=== PATIENT | female | born 1940 | race Hispanic/Latino ===

== ENCOUNTER 2024-08-06 11:39 | Inpatient (IN) | payer OTHER ==
[~2024-08-06] VITALS: Ht 157.5 cm; Wt 71.7 kg
[2024-08-06] VITALS (12 sets, daily range): BP systolic 100–167; BP diastolic 47–96; PULSE 68–74; RESP 16–20; TEMP 98.2–98.9; O2SAT 95
--- NOTE | 2024-08-06 14:51 | HP ---
CATALYST HISTORY AND PHYSICAL Date of Service: Aug 06, 2024 Time of Service: 14:38 HISTORY OF PRESENT ILLNESS: [This is an 83-year-old female who was transferred from [facility] for further cardiac evaluation, she is scheduled for left heart catheterization with [facility]. Apparently she initially was admitted at [facility] after fall from home where she sustained injury to the right hip. Patient then complained of right hip pain swelling and deformity and inability to bear weight to the right lower extremity. She was brought to [facility] and diagnosed with right hip intertrochanteric hip fracture. Patient lives in [place]. She was sent to [facility] for preoperative cardiac evaluation and clearance. Patient has history of coronary artery disease status post stenting in the mid LAD with a 2.5 x 12 see hence Xpedition drug-eluting stent in 2013. Last nuclear stress test was in 2021 with no evidence of ischemia or infarct with ejection fraction of 64%. She was evaluated at [facility] as she was having chest pain with elevated troponins. On admission to [facility] she had elevated troponins that was trended from 490, 456 and 417 with12 lead EKG demonstrates no acute findings. She did have history of angina type symptoms six days prior to admission to [facility]. Where she described chest pain as substernal pain that radiates to the left arm up to the level of the elbow and is relieved by nitroglycerin sublingually. Today patient was evaluated in room 228, she is alert and oriented times three. Patient's son at bedside. We are awaiting for Cardiology for further recommendations. ] REVIEW OF SYSTEMS CONSTITUTIONAL: Denies fevers, chills, or night sweats. No unintentional weight loss reported. NEUROLOGICAL: Denies headache, amaurosis fugax, motor weakness, sensory deficit, vertigo/spinning sensation, gait abnormalities, or tremors. ENT: No hearing loss, otalgia, otorrhea, rhinitis, rhinorrhea, hoarseness, or sore throat. CARDIOVASCULAR: Denies any exertional angina, dyspnea on exertion, orthopnea, paroxysmal nocturnal dyspnea, palpitations, life-threatening arrhythmias, claudication. PULMONARY: Denies any shortness of breath, cough, phlegm/sputum, hemoptysis, pleuritic chest pain. SLEEP: Denies morning headaches, daytime somnolence or napping. Denies di fficulty falling asleep, staying asleep, waking from sleep. Denies knowledge of snoring. GASTROINTESTINAL: Denies any type of dysphagia to either liquids or solids. Denies nausea, vomiting, pyrosis, early satiety, abdominal pain, diarrhea, constipation, or changes in stool consistency or caliber. Denies coffee-ground emesis, hematemesis, hematochezia, or melanotic stools. GENITOURINARY: Denies frequency, urgency, nocturia, hematuria or incontinence (Storage/Irritative symptoms.) Low urinary stream, straining to void, urinary intermittency or hesitancy, splitting of the voiding stream, terminal dribbling. ENDOCRINOLOGIC: Denies polyuria, polydipsia, polyphagia or heat/cold intolerances. HEMATOLOGIC: Denies thrombophilia/previous clots, or coagulopathy/bleeding disorders. ONCOLOGIC: Denies personal history of malignancy. DERMATOLOGIC: Denies rashes or pruritus. PSYCHIATRIC: Denies any suicidal or homicidal ideation. Denies hallucinations. PAST MEDICAL HISTORY: [Diabetes mellitus, hyperlipidemia, hypertension, coronary artery disease ] PAST SURGICAL HISTORY: [ Stent placement in 2013, cholecystectomy, colonoscopy, hysterectomy ] PAST SOCIAL HISTORY: [Patient lives with family, admits to continuing tobacco use and no alcohol or illicit drug use ] FAMILY HISTORY: [Noncontributory ] PHYSICAL EXAM GENERAL APPEARANCE: The patient is awake, alert, and oriented, in no acute cardiopulmonary distress. NEUROLOGICAL: Cranial nerves II-XII grossly intact. Motor is 5/5 in bilateral upper and lower extremities proximal to distal. No sensory deficits. HEENT: Face is symmetric. Pupils are equal and reactive. Extraocular movements are intact. NECK: Supple. No JVD. No thyromegaly. No submental, submandibular, pre- /postauricular, occipital or supraclavicular lymphadenopathy. CHEST: Normal chest expansion. No Telemetry. LUNGS: Absence of any rales, rhonchi or any wheezing. CARDIOVASCULAR: Regular. S1 and S2 normal. No appreciable rubs, murmurs or gallops. ABDOMEN: Soft, nontender, and nondistended. There is no rebound, voluntary guarding, or rigidity. : Deferred. No Reynoso. EXTREMITIES: right hip pain SKIN: No skin breakdown. Vital Sign (Last 24 Hours) 08/06/24 08/06/24 12:40 12:53 Temp 99.0 Pulse 72 Resp 18 B/P (MAP) 142/59 Pulse Ox 95 O2 Delivery Room Air* O2 Flow Rate 0 FiO2 21 LABS: Laboratory: Test 08/06/24 12:57 Range/Units Whole Blood Glucose 133 H 70-110 MG/DL DIAGNOSTICS / RADIOLOGY: [ ] ASSESSMENT: [Right hip intertrochanteric hip fracture, POA NSTEMI, Acute coronary syndrome, POA Diabetes mellitus, type 2, POA Hyperlipidemia Hypertension CKD stage IIIB 2D echo at [facility] on 07/30/2024 showed left ventricular ejection fraction 60 65%, grade diastolic dysfunction Nuclear stress test January 03, 2022 normal stress test for vision indicated ejection fraction 64% ] PLAN: [Admit to PCU Pending left heart catheterization for cardiac clearance Pending fixation of the right hip intertrochanteric fracture We will continue to monitor kidney functions, renally dose medication and avoid nephrotoxic A.c. and HS glucometer and insulin sliding scale Consulted cardiology and orthopedic surgeon Please continue inpatient medications from [facility] Continue with GI and DVT prophylaxis We will repeat labs tomorrow We will repeat labs today Patient is a full code Case discussed with Dr. Pfeiffer, above plan was formulated ADVANCED CARE PLANNING 1. Which of the following were discussed? Hospice Care - Yes / No Therapeutic options - Yes / No Advance Directives - Yes / No Other discussions - 2. Discussed with who? Patient/son 3. Voluntary nature of this service was explained to the patient? Yes / No 4. Amount of time spent - _20 mins 5. Reviewed by Physician? (if this service was performed by NPP) Yes / No ] ATTESTATION BY PHYSICIAN I have seen and examined the patient. I reviewed the documentation, medical decision making, and treatment plan as noted by the mid-level provider above. I agree with the findings and plan of care. CAROLINA PFEIFFER MD, [facility] Aug 06, 2024 14:51
[2024-08-06] MEDS ORDERED: GLUCAGON 1MG KIT 1 MG ML IM PRN (15:00)
[2024-08-06] MEDS ORDERED: PoTASSium chloRIDE 20MEQ/100ML 100 ML IV PRN (15:00)
[2024-08-06] MEDS ORDERED: acetaMINOPHEN 325 MG TAB PO PRN (15:00)
[2024-08-06] MEDS ORDERED: DEXTROSE 50%-WATER 50 ML DISP.SYRIN IV PRN (15:00)
[2024-08-06 15:11] LABS: HEMATOCRIT 27.7 % (36-48); MEAN CORPUSCULAR HEMOGLOBIN 30.7 pg (27.0-33.0); MEAN CORPUSCULAR VOLUME 98.9 fL (79-99); PLATELET COUNT (AUTO) 200 K/uL (130-400); RED CELL DISTRIBUTION WIDTH 13.2 % (11.0-15.5); WHITE BLOOD COUNT (AUTO) 12.3 K/uL (4.8-10.8)
[2024-08-06] MEDS: morPHINE 2 MG SYG IVP ONE (15:22)
[2024-08-06 15:33] LABS: ALBUMIN 2.7 g/dL (3.5-5.0); BILIRUBIN,TOTAL 0.5 mg/dL (0.2-1.0); CREATININE 1.2 mg/dL (0.5-1.0); POTASSIUM 4.1 mmol/L (3.5-5.1); TOTAL PROTEIN, SERUM 6.6 g/dL (6.0-8.3)
[2024-08-06] MEDS ORDERED: VERAPAMIL HCL 2.5 MG/ML VIAL ONE (15:33)
[2024-08-06] MEDS ORDERED: LIDOCAINE HCL 400MG/20ML VIAL ONE (15:33)
[2024-08-06] MEDS ORDERED: IOHEXOL 350 MG/ML 100ML INFUS..BTL IV ONE (15:33)
[2024-08-06] MEDS ORDERED: HEParin-NS 1,000 UNIT/500 ML 1,000 ML IV ONE (15:33)
[2024-08-06] MEDS ORDERED: NITROGLYCERIN 50MG VIAL ONE (15:34)
[2024-08-06] MEDS ORDERED: HEParin 10,000 UNIT/10ML (1,000 UNIT/ML) VIAL ONE (15:35)
[2024-08-06] MEDS ORDERED: FENTanyl CITRate PF 50 MCG/1 ML 2ML VIAL ONE (16:06)
[2024-08-06] MEDS ORDERED: MIDAZOLAM HCL 1 MG/ML 2ML VIAL ONE (16:06)
[2024-08-06] MEDS: INSULIN humuLIN R 100 UNIT/ML 3ML SQ SCH (16:30)
[2024-08-06] MEDS ORDERED: HEParin-NS 1,000 UNIT/500 ML 500 ML IV ONE (17:28)
[2024-08-06] MEDS ORDERED: EPTIFIBATIDE 2 MG/ML 10 ML VIAL IVP ONE ×2 (17:42→17:46)
[2024-08-06] MEDS ORDERED: cloPIDOgrel 300MG TAB ONE (17:55)
[2024-08-06] MEDS ORDERED: ASPIRIN 325MG EC TAB PO ONE (17:55)
[2024-08-06] MEDS: 0.9%NACL 1000ML 1,000 ML IV SCH (18:00)
--- NOTE | 2024-08-06 18:20 | PRN ---
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 The right radial artery was interrogated with ultrasound and found to be too small for arterial access. The left groin was interrogated using ultrasound, and under fluoroscopic and ultrasound guidance, the left common femoral artery was accessed with micropuncture and upsized to six Belgian short sheath. Over an 035 J-wire, a six Belgian JR4 catheter was advanced to the ascending aorta, used across aortic valve for LVEDP measurement and pullback across the aortic valve. The JR4 catheter was used to selectively engage right coronary artery multiple angiographic views were taken. Catheter was then exchanged for a six Belgian JL 4.0 which was used to selectively engage left franc nary artery multiple angiographic views were taken. Then, we proceeded with intervention. 70 units per kg of heparin was given via peripheral IV and ACT monitored throughout procedure to obtain goal ACT of greater than 250. The catheter was exchanged for a JL 4.06 Belgian guide, and an 014 x 300 cm run- through wire was advanced to the distal LAD, with positioning confirmed by venancio ective injection through a 2.5 x 12 mm compliant balloon. Pre dilatation was performed of the stenosis with this 2.5 x 12 mm compliant balloon to nominal pressures. Intravascular ultrasound was then performed of the left anterior descending artery which revealed an undersized stent in the left anterior descending measuring 3.0 mm in diameter. We are unable to advance the stent, therefore exchanged over the balloon initially for an 014 Ironman wire, however distal positioning in the left anterior descending artery could not be obtained. The balloon was removed, and 1.8 Belgian FineCross catheter advanced distally and the wire then exchanged again for the runthrough. A six Belgian GuideLiner was used for additional support, and was successful in advancing the jose francisco Fajardo 3.0 x 12 drug-eluting stent in overlapping fashion with the proximal portion prior placed stent. This was deployed at nominal pressures followed by post dilation of the overlap at 12 atmospheres, followed a 2nd inflation to the newly placed stent at 12 atmospheres. The patient tolerated the procedure well without immediate complications. The 2nd diagonal displayed ostial 60-70% stenosis post deployment of the newly placed stent, with ostium jailed. Double bolus Integrilin was given as this time. Patient was chest pain free. Common angiography was performed through the sheath side port and hemostasis achieved w ith six Belgian Perclose. Patient tolerated the procedure well without immediate complications. FINDINGS: Left main: Distal 30% stenosis Left anterior descending: There is a prior placed stent in the mid LAD. There is a focal 95-99% stenosis just proximal to the stent. There was minimal antegrade flow, and 100% occlusion of the distal edge of the stent likely due to poor antegrade coronary flow. There was no collateral filling to the left anterior descending artery retrograde. Following intervention, there is evidence of a residual 100% apical stenosis. First diagonal with an ostial 50% stenosis. The 2nd diagonal is small, displaying moderate diffuse disease, with evidence of 60-70% ostial stenosis status post intervention with a its ostium jailed by the newly placed stent. Left circumflex: Proximal 10-20% stenosis. There are large caliber OM1, OM2 b ranches that are tortuous distally, bifurcating, angiographically free of disease as 610 across the lateral wall Right coronary artery: Coronary display a right dominant system. Proximal RCA 30% stenosis. RPDA with luminal irregularities. HEMODYNAMICS: Opening aortic pressure 153/51 with a mean of 97 mm of mercury Left ventricle 150 mm of mercury. Gradient on pullback across the aortic valve less than 10 mm of mercury. LVEDP 19 mm of mercury CONTRAST: 155 ml SUMMARY: 95 to 99% stenosis of the mid LAD proximal to the prior placed stent, status post percutaneous intervention to the mid left anterior descending artery with placement of drug-eluting stent (3.0 x 12 mm Jose Francisco Fajardo) under intravascular ultrasound guidance. KATHARINE VAUGHN DO Aug 06, 2024 18:19
[2024-08-06] MEDS ORDERED: ATOR40TA71 PO (19:33)
[2024-08-06] MEDS ORDERED: LISI10TA24 PO (19:33)
[2024-08-06] MEDS ORDERED: GABA-529 PO (19:33)
[2024-08-06] MEDS ORDERED: ISOS60TA77 PO (19:33)
[2024-08-06] MEDS ORDERED: MONT-39 PO (19:33)
[2024-08-06] MEDS ORDERED: METO-391 PO (19:33)
[2024-08-06] MEDS ORDERED: OMEP20CA12 PO (19:33)
[2024-08-06] MEDS ORDERED: LORA10TA7 PO (19:33)
[2024-08-06] MEDS: acetaMINOPHEN 325 MG TAB PO PRN (23:55)
[2024-08-07] VITALS (10 sets, daily range): BP systolic 100–131; BP diastolic 45–56; PULSE 64–74; RESP 16–22; TEMP 97.6–98.9; O2SAT 95
[2024-08-07 06:25] LABS: BASOPHILS # (AUTO) 0.03 K/uL (0.00-0.20); BASOPHILS % (AUTO) 0.3 % (0.0-5.0); EOSINOPHILS # (AUTO) 0.27 K/uL (0.00-0.70); EOSINOPHILS % (AUTO) 2.3 % (0.0-8.0); HEMATOCRIT 25.7 % (36-48); IMMATURE GRANULOCYTE ABSOLUTE 0.05 K/uL (0-1); LYMPHOCYTES # (AUTO) 3.1 K/uL (1.0-4.8); LYMPHOCYTES % (AUTO) 27.1 % (21.0-51.0); MEAN CORPUSCULAR HEMOGLOBIN 30.2 pg (27.0-33.0); MEAN CORPUSCULAR HGB CONC 31.1 g/dL (32.0-36.0); MONOCYTES # (AUTO) 0.9 K/uL (0.1-1.0); MONOCYTES % (AUTO) 7.9 % (3.0-13.0); NEUTROPHILS # (AUTO) 7.2 K/uL (1.8-7.7); PLATELET COUNT (AUTO) 209 K/uL (130-400); RED BLOOD CELL COUNT(AUTO) 2.65 MIL/uL (4.00-5.50); RED CELL DISTRIBUTION WIDTH 13.2 % (11.0-15.5); WHITE BLOOD COUNT (AUTO) 11.6 K/uL (4.8-10.8)
[2024-08-07 06:42] LABS: CREATININE 1.1 mg/dL (0.5-1.0); MAGNESIUM 1.5 mg/dL (1.80-2.40); POTASSIUM 3.8 mmol/L (3.5-5.1)
[2024-08-07] MEDS: MAGNESIUM 2GM PREMIX 50ML 50 ML IV PRN (06:51)
[2024-08-07] MEDS: morPHINE 2 MG SYG IVP PRN (07:52)
[2024-08-07] MEDS: metOPROLol sucCINATE 25 MG TAB.SR.24H PO SCH (08:40)
[2024-08-07] MEDS: ASPIRIN 81 MG EC TAB PO SCH (08:42)
[2024-08-07] MEDS: cloPIDOgrel 75MG TAB PO SCH (08:42)
--- NOTE | 2024-08-07 09:11 | PN ---
[facility] CARDIOLOGY PROGRESS NOTE Date Patient Seen: Aug 07, 2024 Time of Visit: 08:29 Interval History: This 83-year-old Latin-British female, patient previously of the [facility] with a history of type 2 diabetes mellitus with circulatory and renal manifestations, hypertension, hyperlipidemia, tobacco abuse (ongoing, but only of a couple of cigarettes per day), peripheral arterial disease with stenoses in the right posterior tibial, left anterior tibial, and left dorsalis pedis arteries by prior Doppler exam, and known coronary artery disease status post remote PTCA and stenting of the mid LAD 07/30/2014 with a 2.5 x 12 mm Xience Xpedition drug-eluting stent. She had a brief admission to [facility] when she developed an episode of dizziness and possible left facial droop 07/27/[address] scan demonstrating atrophy, carotid Dopplers demonstrating no carotid disease, and a 2D echo demonstrating preserved LV function with an LVEF of 60-65%, mild concentric LVH, grade 2 diastolic dysfunction, and no significant valvular disease. She had an accidental fall 08/04/2024 and suffered a right hip intertrochanteric fracture initially hospitalized at [facility]. Serial troponins were screened and were modestly elevated at 490, 456, and 417 without acute ischemic EKG changes. She was transferred for cardiac catheterization 08/06/2024 demonstrating nonobstructive disease in the RCA and left circumflex with a 95-99% mid LAD stenosis several mm proximal to her previous stent in the mid LAD from 2013. She underwent PTCA and stenting with a 3.0 x 12 mm Medtronic jose francisco Jarratt drug-eluting stent without complication with episcopalian of flow to the distal LAD. There was a residual 100% apical LAD stenosis in a small apical LAD. This morning the patient is comfortable, offers no complaints of chest discomfort, and has no groin hematoma in the left groin cath site. Her case has been discussed with Dr. Vaughn, Dr. Augustin Garcia (orthopedic surgery), and plans are for proceeding with surgery to her right hip tomorrow a.m. with modest increased risk given her recent drug-eluting stent. It was felt that delaying her surgery for several weeks would increase her risk of immobilization and for this reason proceeding with surgery at this time is preferable. Continue dual antiplatelet therapy, consider Lovenox/heparin postoperative day one, and monitor for any perioperative cardiac complications. Repeat a 2D echo today as her previous echo was prior to her non STEMI from 08/04/2024. Physical Examination: GENERAL: No acute distress. HEAD: Normal with no signs of head trauma. EYES: PERRLA, EOMI, conjunctiva and sclera normal. NECK: Supple without JVD. There is no tenderness, lymphadenopathy, or masses. No thyromegaly. Normal carotid upstrokes without bruits. LUNGS: Clear breath sounds bilaterally. No wheezes, or rhonchi. HEART: Normal rate and rhythm. Normal S1 and S2 without murmurs, gallop or rub. VASC: Peripheral pulses +2 bilaterally. EXT: No clubbing, cyanosis or edema. The left groin cath site is without bleeding or hematoma. NEURO: Awake, alert, and oriented x3. No focal neurological deficits noted. Laboratory: Hematology Labs: Test 08/07/24 06:03 08/06/24 15:02 Range/Units White Blood Count 11.6 H 4.8-10.8 K/uL Red Blood Count 2.65 L 4.00-5.50 MIL/uL Hemoglobin 8.0 L 12.0-16.0 g/dL Hematocrit 25.7 L 36-48 % Mean Corpuscular Volume 97.0 79-99 fL Mean Corpuscular Hemoglobin 30.2 27.0-33.0 pg Mean Corpuscular Hemoglobin Concent 31.1 L 32.0-36.0 g/dL Red Cell Distribution Width 13.2 11.0-15.5 % Platelet Count 209 130-400 K/uL Mean Platelet Volume 10.7 H 7.5-10.5 fL Immature Granulocyte % (Auto) 0.4 0-1 % Neutrophils (%) (Auto) 62.0 40.0-77.0 % Lymphocytes (%) (Auto) 27.1 21.0-51.0 % Monocytes (%) (Auto) 7.9 3.0-13.0 % Eosinophils (%) (Auto) 2.3 0.0-8.0 % Basophils (%) (Auto) 0.3 0.0-5.0 % Neutrophils # (Auto) 7.2 1.8-7.7 K/uL Lymphocytes # (Auto) 3.1 1.0-4.8 K/uL Monocytes # (Auto) 0.9 0.1-1.0 K/uL Eosinophils # (Auto) 0.27 0.00-0.70 K/uL Basophils # (Auto) 0.03 0.00-0.20 K/uL Absolute Immature Granulocyte (auto 0.05 0-1 K/uL Nucleated Red Blood Cells 0.0 0.0-0.19 % Red Blood Cell Morphology See comments Chemistry Labs: Test 08/07/24 06:03 08/07/24 05:31 08/06/24 15:02 Range/Units Sodium Level 143 136-145 mmol/L Potassium Level 3.8 3.5-5.1 mmol/L Chloride Level 107 101-111 mmol/L Carbon Dioxide Level 30 21-32 mmol/L Blood Urea Nitrogen 20 H 7-18 mg/dL Creatinine 1.1 H 0.5-1.0 mg/dL Glomerular Filtration Rate Calc 50 >90 mL/min Random Glucose 106 H 70-105 mg/dL Total Calcium 8.5 8.5-10.1 mg/dL Magnesium Level 1.50 L 1.80-2.40 mg/dL Whole Blood Glucose 97 70-110 MG/DL Total Bilirubin 0.5 0.2-1.0 mg/dL Aspartate Amino Transf (AST/SGOT) 15 10-37 U/L Alanine Aminotransferase (ALT/SGPT) 18 12-78 U/L Alkaline Phosphatase 62 50-136 U/L Total Protein 6.6 6.0-8.3 g/dL Albumin 2.7 L 3.5-5.0 g/dL Diagnostics / Radiology: Impression and Plan: Right hip intertrochanteric fracture status post accidental fall 08/04/2024: -management discussed with Dr. Augustin Garcia and surgery planned for 08/08/2024 Type 2 non STEMI (supply demand mismatch) in the setting of right hip fracture status post accidental fall 08/04/2024: Modest serial troponins of 490, 456, and 417 with no acute EKG changes: Coronary artery disease status post remote PTCA and stenting of the mid LAD with a 2.5 x 12 Xience Xpedition drug-eluting stent 07/30/2014: Coronary artery disease status post PTCA and stenting of the mid LAD proximal to her prior stent with a 3.0 x 12 mm Medtronic Speculator Jarratt drug-eluting stent 08/06/2024: -patient has been loaded with aspirin and clopidogrel -the patient is cleared for orthopedic surgery at this time with intermediate risk given recent acute coronary syndrome and PTCA and stent procedure, but best to intervene at this time to reduce risk of immobility pending endothelialization of her stent -case discussed with Dr. Augustin Garcia, in surgery planned for tomorrow -continue dual antiplatelets today, proceed with surgery, and plan postoperative heparin/Lovenox beginning postoperative day one Normal LV systolic function with LVEF of 60-65%, mild concentric LVH, grade 2 diastolic dysfunction by 2D echocardiogram 07/29/2024: -limited 2D echo post FL ordered today No hemodynamically significant carotid stenosis by Doppler examination 07/27/2024: Small-vessel disease and mild cerebral atrophy on CT scan of the head 07/26/2024: -monitor [employer] status Normochromic normocytic anemia: -proceed with anemia evaluation Comorbidities: Essential hypertension Hyperlipidemia Continued tobacco abuse Stage III chronic renal insufficiency Type 2 diabetes with renal and circulatory manifestations Diabetic peripheral neuropathy KEYANA MAR MD Aug 07, 2024 09:11
[2024-08-07 09:42] LABS: % IRON SATURATION 13.4 % (22-44)
--- NOTE | 2024-08-07 09:57 | EKG ---
[facility] Test Date: 2024-08-07 Test Time: 09:58:32 Pat Name: AMARIS LOPEZ Department: [facility] Room: 228 1 Gender: Female Saddle Stitcher: [id number] : 1940 Requested By: KEYANA MAR Order Number: [id number] Reading MD: Sam Taylor Measurements Intervals [place] Rate: 80 P: 85 MS: 142 QRS: 39 QRSD: 78 T: 62 QT: 408 QTc: 470 Interpretive Statements Sinus rhythm with premature atrial complexes Cannot rule out Inferior infarct , age undetermined T wave abnormality, consider anterior ischemia No previous ECG available for comparison Electronically Signed On 08-08-2024 16:11:10 CDT by Sam Taylor Please click the below link to view image of tracing.
--- NOTE | 2024-08-07 13:19 | PN ---
[facility] PROGRESS NOTE Date of Service: Aug 07, 2024 Time of Service: 13:16 SUBJECTIVE: The patient has been seen and examined during my rounding, no acute events overnight, remains comfortably in bed, stable, BP 100/45, afebrile, heart rate controlled at 64, saturating 98% on 2 L via nasal cannula. Currently getting good pain control with current medical management, denies dizziness, no headache, no chest pain, no shortness shortness for breath, no nausea, no vomiting, no abdominal discomfort, no diarrhea, no constipation, no melena, no hematochezia, no hematemesis, no hematuria, no dysuria. Patient had left heart catheterization yesterday, tolerated well. 95 to 99% stenosis of the mid LAD proximal to the prior placed stent, status post percutaneous intervention to the mid left anterior descending artery with placement of drug-eluting stent (3.0 x 12 mm Oziel Temple) under intravascular ultrasound guidance. REVIEW OF SYSTEMS CONSTITUTIONAL: Denies fevers, chills, or night sweats. No unintentional weight loss reported. NEUROLOGICAL: Denies headache, amaurosis fugax, motor weakness, sensory deficit, vertigo/spinning sensation, gait abnormalities, or tremors. ENT: No hearing loss, otalgia, otorrhea, rhinitis, rhinorrhea, hoarseness, or sore throat. CARDIOVASCULAR: Denies any exertional angina, dyspnea on exertion, orthopnea, paroxysmal nocturnal dyspnea, palpitations, life-threatening arrhythmias, claudication. PULMONARY: Denies any shortness of breath, cough, phlegm/sputum, hemoptysis, pleuritic chest pain. SLEEP: Denies morning headaches, daytime somnolence or napping. Denies difficulty falling asleep, staying asleep, waking from sleep. Denies knowledge of snoring. GASTROINTESTINAL: Denies any type of dysphagia to either liquids or solids. Denies nausea, vomiting, pyrosis, early satiety, abdominal pain, diarrhea, constipation, or changes in stool consistency or caliber. Denies coffee-ground emesis, hematemesis, hematochezia, or melanotic stools. GENITOURINARY: Denies frequency, urgency, nocturia, hematuria or incontinence (Storage/Irritative symptoms.) Low urinary stream, straining to void, urinary intermittency or hesitancy, splitting of the voiding stream, terminal dribbling. ENDOCRINOLOGIC: Denies polyuria, polydipsia, polyphagia or heat/cold intolerances. HEMATOLOGIC: Denies thrombophilia/previous clots, or coagulopathy/bleeding disorders. ONCOLOGIC: Denies personal history of malignancy. DERMATOLOGIC: Denies rashes or pruritus. PSYCHIATRIC: Denies any suicidal or homicidal ideation. Denies hallucinations. PHYSICAL EXAM GENERAL APPEARANCE: The patient is awake, alert, and oriented, in no acute cardiopulmonary distress. NEUROLOGICAL: Cranial nerves II-XII grossly intact. Motor is 5/5 in bilateral upper and lower extremities proximal to distal. No sensory deficits. HEENT: Face is symmetric. Pupils are equal and reactive. Extraocular movements are intact. NECK: Supple. No JVD. No thyromegaly. No submental, submandibular, pre-/postau ricular, occipital or supraclavicular lymphadenopathy. CHEST: Normal chest expansion. No Telemetry. LUNGS: Absence of any rales, rhonchi or any wheezing. CARDIOVASCULAR: Regular. S1 and S2 normal. No appreciable rubs, murmurs or gallops. ABDOMEN: Soft, nontender, and nondistended. There is no rebound, voluntary guarding, or rigidity. : Deferred. No Reynoso. EXTREMITIES: right hip pain SKIN: No skin breakdown. Vital Signs (last 8hr) Date Time Temp Pulse Resp B/P (MAP) Pulse Ox O2 Delivery O2 Flow Rate FiO2 08/07/24 11:00 98.8 64 22 100/45 98 Nasal Cannula 2.0 08/07/24 08:00 95 Room Air* 0 21 08/07/24 07:00 98.1 72 20 118/46 99 Nasal Cannula 2.0 LABS: Laboratory: Test 08/07/24 11:40 08/07/24 06:10 08/07/24 06:03 08/06/24 15:02 Range/Units Whole Blood Glucose 187 #H 70-110 MG/DL Bedside Glucose Comment Notified Nurse Iron Level 35 L 50-170 mcg/dL Total Iron Binding Capacity 260 250-450 mcg/dL Percent Iron Saturation 13.4 L 22-44 % White Blood Count 11.6 H 4.8-10.8 K/uL Red Blood Count 2.65 L 4.00-5.50 MIL/uL Hemoglobin 8.0 L 12.0-16.0 g/dL Hematocrit 25.7 L 36-48 % Mean Corpuscular Volume 97.0 79-99 fL Mean Corpuscular Hemoglobin 30.2 27.0-33.0 pg Mean Corpuscular Hemoglobin Concent 31.1 L 32.0-36.0 g/dL Red Cell Distribution Width 13.2 11.0-15.5 % Platelet Count 209 130-400 K/uL Mean Platelet Volume 10.7 H 7.5-10.5 fL Immature Granulocyte % (Auto) 0.4 0-1 % Neutrophils (%) (Auto) 62.0 40.0-77.0 % Lymphocytes (%) (Auto) 27.1 21.0-51.0 % Monocytes (%) (Auto) 7.9 3.0-13.0 % Eosinophils (%) (Auto) 2.3 0.0-8.0 % Basophils (%) (Auto) 0.3 0.0-5.0 % Neutrophils # (Auto) 7.2 1.8-7.7 K/uL Lymphocytes # (Auto) 3.1 1.0-4.8 K/uL Monocytes # (Auto) 0.9 0.1-1.0 K/uL Eosinophils # (Auto) 0.27 0.00-0.70 K/uL Basophils # (Auto) 0.03 0.00-0.20 K/uL Absolute Immature Granulocyte (auto 0.05 0-1 K/uL Nucleated Red Blood Cells 0.0 0.0-0.19 % Sodium Level 143 136-145 mmol/L Potassium Level 3.8 3.5-5.1 mmol/L Chloride Level 107 101-111 mmol/L Carbon Dioxide Level 30 21-32 mmol/L Blood Urea Nitrogen 20 H 7-18 mg/dL Creatinine 1.1 H 0.5-1.0 mg/dL Glomerular Filtration Rate Calc 50 >90 mL/min Random Glucose 106 H 70-105 mg/dL Total Calcium 8.5 8.5-10.1 mg/dL Magnesium Level 1.50 L 1.80-2.40 mg/dL Ferritin 113 15-150 ng/mL Vitamin B12 Level 633 193-986 pg/mL Folic Acid (LAB) 19.20 2-20 ng/mL Red Blood Cell Morphology See comments Total Bilirubin 0.5 0.2-1.0 mg/dL Aspartate Amino Transf (AST/SGOT) 15 10-37 U/L Alanine Aminotransferase (ALT/SGPT) 18 12-78 U/L Alkaline Phosphatase 62 50-136 U/L Total Protein 6.6 6.0-8.3 g/dL Albumin 2.7 L 3.5-5.0 g/dL Current Medications Medications (Trade) Dose Ordered Sig/Kaylan Route PRN Reason Start Time Stop Time Status Last Admin Dose Admin Acetaminophen (TYLenol 325MG TAB) 650 mg Q4H PRN PO TEMPERATURE GREATER THAN 101.5 08/06/24 15:00 09/05/24 14:59 Acetaminophen (TYLenol 325MG TAB) 650 mg Q6H PRN PO MILD PAIN (1-3) 08/06/24 15:00 09/05/24 14:59 08/07/24 11:46 650 MG Aspirin (Aspirin 81mg Ec Tab) 81 mg DAILY PO 08/07/24 09:00 09/06/24 08:59 08/07/24 08:42 81 MG Clopidogrel Bisulfate (plaVIX 75MG) 75 mg DAILY PO 08/07/24 09:00 09/06/24 08:59 08/07/24 08:42 75 MG Dextrose (D50w) 50 ml AD PRN IV HYPOGLYCEMIA PROTOCOL 08/06/24 15:00 09/05/24 14:59 Glucagon (Glucagon 1mg Kit) 1 mg AD PRN IM HYPOGLYCEMIA PROTOCOL 08/06/24 15:00 09/05/24 14:59 Insulin Human Regular (humuLIN R 100 UNIT/ML 3ML) INSULIN SLIDING SCAL... ACHS SQ 08/06/24 16:30 09/05/24 16:29 08/07/24 11:50 2 UNIT Magnesium Sulfate 50 ml @ 0 mls/hr PROTOCOL PRN IV MAGNESIUM PROTOCOL 08/06/24 15:00 09/05/24 14:59 08/07/24 06:51 25 MLS/HR Metoprolol Succinate (TopROL XL) 12.5 mg ONCE PO 08/07/24 09:00 08/07/24 14:00 08/07/24 08:40 12.5 MG Morphine Sulfate (morPHINE 2MG SYG) 2 mg Q4H PRN IVP SEVERE PAIN (7-10) 08/06/24 15:00 08/13/24 14:59 08/07/24 12:35 2 MG Ondansetron HCl (zoFRAN 4MG INJ) 4 mg Q6H PRN IVP NAUSEA/VOMITING 08/06/24 15:00 09/05/24 14:59 Potassium Chloride 100 ml @ 50 mls/hr AD PRN IV POTASSIUM PROTOCOL 08/06/24 15:00 09/05/24 14:59 Sodium Chloride 1,000 ml @ 100 mls/hr Q10H IV 08/06/24 18:00 08/06/24 20:59 DC DIAGNOSTICS / RADIOLOGY: [ ] ASSESSMENT: [Right hip intertrochanteric hip fracture, POA NSTEMI, Acute coronary syndrome, POA Diabetes mellitus, type 2, POA Hyperlipidemia Hypertension CKD stage IIIB 2D echo at [place] on 07/30/2024 showed left ventricular ejection fraction 60 65%, grade diastolic dysfunction Nuclear stress test January 03, 2022 normal stress test for vision indicated ejection fraction 64% ] PLAN: Remains admitted to the PCU Left heart catheterization done 08/06/2024 Follow Cardiology input and recommendation Continue to follow orthopedic input and recommendation We will continue to monitor kidney functions, renally dose medication and avoid nephrotoxic A.c. and HS glucometer and insulin sliding scale Consulted cardiology and orthopedic surgeon Please continue inpatient medications from [place] Continue with GI and DVT prophylaxis We will repeat labs tomorrow We will repeat labs today Disposition: Remains admitted to the PCU, continue lens edger, the patient underwent left heart catheterization 08/06/2024 with 95 to 99% stenosis of the mid LAD proximal to the prior placed stent, status post percutaneous intervention to the mid left anterior descending artery with placement of drug-e luting stent (3.0 x 12 mm [place] Temple) under intravascular ultrasound guidance. Continue to follow Cardiology input and recommendation. Follow orthopedic input and recommendation, the patient will be scheduled possibly to be taken to the OR tomorrow. Plan of action discussed with the patient and family at bedside, agreed and understood all the information provided. Total visit time spent greater than 30 minutes. CAROLINA PFEIFFER MD Aug 07, 2024 13:19
--- NOTE | 2024-08-07 18:21 | HMCSR ---
APPROVED REPORT EXAM: Two-dimensional and M-mode echocardiogram with Doppler and color Doppler. Study Details: Hx; CO since recent echo 07/29 (CO on 08/04/2024) assess LV function only INDICATION ICD: s/p NSTEMI 08/04/2024, assess LV function Assess LV Function 2D Dimensions LVED Vol(simp.)89.7 mL LVES Vol(simp.)29.1 mL LVEF(%, simp.)68 % Deformation Strain Apical 417.0 % Apical 221.0 % Apical 320.0 % Global Hnjfff42.0 % Mitral Valve MV E Ibim466.0 cm/sDECEL Fgyb444 ms MV A Hdjl836.9 cm/sP 1/2 T98 ms E/A ratio1.1MVA (PHT)2.2 cm2 TDI E/E' Okvdtp21.7E/E' Pkyjere09.2 Medial E' Peak V6.00 cm/sLateral E' Peak V7.90 cm/s Left Ventricle Left ventricular cavity size is normal. GLS -19.0%. There is normal left ventricular wall thickness. LVEF is 60-65%. Stage I diastolic dysfunction. Atria LAE. Aortic Valve There is no aortic valvular stenosis. Mitral Valve There is trace of mitral valve regurgitation noted. There is no mitral valve stenosis. Pericardium No pericardial effusion. Other Information Quality : ExcellentTechnically difficult due to body habitus Conclusion Limited study. Left ventricular cavity size is normal. LVEF is 60-65%. Stage I diastolic dysfunction. LAE. No pericardial effusion.
--- NOTE | 2024-08-07 22:46 | CONS ---
CONSULTING PHYSICIAN: Tufting Machine Operator. REASON FOR CONSULTATION: Right hip intertrochanteric hip fracture. HISTORY OF PRESENT ILLNESS: This patient lives in [place] and fell down and sustained injury to the right hip. The patient was initially taken to [facility] and diagnosed with a right hip intertrochanteric hip fracture. The patient was planned for surgery at [facility]; however, the patient was recommended cardiology clearance because of her previous history of medical, cardiac problems and the patient was found to have symptoms from the heart and therefore cardiology peng, the patient was transferred to [facility] and underwent cardiac intervention, I think I believe a stenting, so Ortho has been again consulted for the right hip intertrochanteric hip fracture. PAST MEDICAL HISTORY: Positive for diabetes, hypertension, N-STEMI, congestive heart failure. PAST SURGICAL HISTORY: Left elbow ORIF. ALLERGIES: TO PENICILLIN. SOCIAL HISTORY: Does not smoke, does not drink alcohol, no illegal drugs. The patient lives in [place]. MEDICATIONS: Reviewed. FAMILY HISTORY: Nothing significant. PHYSICAL EXAMINATION: GENERAL: The patient is awake, alert, oriented x 3. VITAL SIGNS: Heart rate 88, blood pressure 148/71, oxygen saturation 97% on room air. The patient is obese patient, awake, alert, oriented x 3. HEENT: Normocephalic, atraumatic. NECK: No engorged vein. CHEST: Symmetric movement is seen. ABDOMEN: Soft, nontender. PELVIS: No tenderness in pelvis compression or distraction. EXTREMITIES: Examination of right hip, right lower extremity shows swelling and ecchymosis present, tenderness present right groin. Hip joint range of motion is limited. Motor, sensory is grossly intact. Toes are warm and pink. Good capillary refill is present. INVESTIGATIONS: X-rays of the right hip shows right hip intertrochanteric hip fracture. Other laboratory investigations were also reviewed, so I discussed in detail with the patient and family regarding her condition and the treatment options available and they preferred operative management of right hip. ASSESSMENT AND PLAN: The patient is at high risk of again having a heart attack or a stroke, the family and the patient know about it and wants to pursue surgery. Cardiology peng, high risk for again complications also including risk of heart attack and stroke, but family wants to pursue with. Informed consent was obtained. Plan is to proceed with surgery tomorrow. N.p.o. from midnight. Consent in chart. BROOKE: 08/07/2024 10:21 PM TID: [id number] RECEIPT: [id number]
[2024-08-08] VITALS (27 sets, daily range): BP systolic 86–150; BP diastolic 32–74; PULSE 44–81; RESP 14–20; TEMP 97.5–99.3; O2SAT 95–99
[2024-08-08 05:48] LABS: INR 0.96 (0.85-1.15); PROTHROMBIN TIME 10.4 SEC (9.6-11.6)
[2024-08-08 05:49] LABS: CREATININE 1.1 mg/dL (0.5-1.0); MAGNESIUM 1.9 mg/dL (1.80-2.40); POTASSIUM 3.9 mmol/L (3.5-5.1)
[2024-08-08 05:50] LABS: PARTIAL THROMBOPLASTIN TIME 25.6 SEC (26.3-35.5)
[2024-08-08] MEDS: CLINDAMYCIN 900MG/6ML INJ IVPB ONE (09:40)
--- NOTE | 2024-08-08 09:47 | PN ---
[facility] CARDIOLOGY PROGRESS NOTE Date Patient Seen: Aug 08, 2024 Time of Visit: 09:32 Interval History: This 83-year-old Latin-[place]kin[place] female, patient previously of the [facility] with a history of type 2 diabetes mellitus with circulatory and renal manifestations, hypertension, hyperlipidemia, tobacco abuse (ongoing, but only of a couple of cigarettes per day), peripheral arterial disease with stenoses in the right posterior tibial, left anterior tibial, and left dorsalis pedis arteries by prior Doppler exam, and known coronary artery disease status post remote PTCA and stenting of the mid LAD 07/30/2014 with a 2.5 x 12 mm Xience Xpedition drug-eluting stent. She had a brief admission to [facility] when she developed an episode of dizziness and possible left facial droop 07/27/[address] scan demonstrating atrophy, carotid Dopplers demonstrating no carotid disease, and a 2D echo demonstrating preserved LV function with an LVEF of 60-65%, mild concentric LVH, grade 2 diastolic dysfunction, and no significant valvular disease. She had an accidental fall 08/04/2024 and suffered a right hip intertrochanteric fracture initially hospitalized at [facility]. Serial troponins were screened and were modestly elevated at 490, 456, and 417 without acute ischemic EKG changes. She was transferred for cardiac catheterization 08/06/2024 demonstrating nonobstructive disease in the RCA and left circumflex with a 95-99% mid LAD stenosis several mm proximal to her previous stent in the mid LAD from 2013. She underwent PTCA and stenting with a 3.0 x 12 mm Medtronic jose francisco [place] drug-eluting stent without complication with sikhism of flow to the distal LAD. There was a residual 100% apical LAD stenosis in a small apical LAD. A 2D echo 08/07/2024 demonstrated an LVEF of 60-65%. The patient is currently undergoing right hip open reduction internal fixation by Dr. Garcia. Follow her perioperatively. Plans are to begin heparin postoperative day one and continue dual antiplatelet therapy. Physical Examination: Patient in OR. Laboratory: Hematology Labs: Test 08/07/24 06:03 08/06/24 15:02 Range/Units White Blood Count 11.6 H 4.8-10.8 K/uL Red Blood Count 2.65 L 4.00-5.50 MIL/uL Hemoglobin 8.0 L 12.0-16.0 g/dL Hematocrit 25.7 L 36-48 % Mean Corpuscular Volume 97.0 79-99 fL Mean Corpuscular Hemoglobin 30.2 27.0-33.0 pg Mean Corpuscular Hemoglobin Concent 31.1 L 32.0-36.0 g/dL Red Cell Distribution Width 13.2 11.0-15.5 % Platelet Count 209 130-400 K/uL Mean Platelet Volume 10.7 H 7.5-10.5 fL Immature Granulocyte % (Auto) 0.4 0-1 % Neutrophils (%) (Auto) 62.0 40.0-77.0 % Lymphocytes (%) (Auto) 27.1 21.0-51.0 % Monocytes (%) (Auto) 7.9 3.0-13.0 % Eosinophils (%) (Auto) 2.3 0.0-8.0 % Basophils (%) (Auto) 0.3 0.0-5.0 % Neutrophils # (Auto) 7.2 1.8-7.7 K/uL Lymphocytes # (Auto) 3.1 1.0-4.8 K/uL Monocytes # (Auto) 0.9 0.1-1.0 K/uL Eosinophils # (Auto) 0.27 0.00-0.70 K/uL Basophils # (Auto) 0.03 0.00-0.20 K/uL Absolute Immature Granulocyte (auto 0.05 0-1 K/uL Nucleated Red Blood Cells 0.0 0.0-0.19 % Red Blood Cell Morphology See comments Chemistry Labs: Test 08/08/24 09:18 08/08/24 05:17 08/07/24 19:36 08/07/24 06:10 Range/Units Whole Blood Glucose 161 H 70-110 MG/DL Sodium Level 142 136-145 mmol/L Potassium Level 3.9 3.5-5.1 mmol/L Chloride Level 105 101-111 mmol/L Carbon Dioxide Level 32 21-32 mmol/L Blood Urea Nitrogen 22 H 7-18 mg/dL Creatinine 1.1 H 0.5-1.0 mg/dL Glomerular Filtration Rate Calc 50 >90 mL/min Random Glucose 156 H 70-105 mg/dL Total Calcium 8.9 8.5-10.1 mg/dL Magnesium Level 1.90 1.80-2.40 mg/dL Bedside Glucose Comment Notified Nurse Iron Level 35 L 50-170 mcg/dL Total Iron Binding Capacity 260 250-450 mcg/dL Percent Iron Saturation 13.4 L 22-44 % Test 08/07/24 06:03 08/06/24 15:02 Range/Units Ferritin 113 15-150 ng/mL Vitamin B12 Level 633 193-986 pg/mL Folic Acid (LAB) 19.20 2-20 ng/mL Total Bilirubin 0.5 0.2-1.0 mg/dL Aspartate Amino Transf (AST/SGOT) 15 10-37 U/L Alanine Aminotransferase (ALT/SGPT) 18 12-78 U/L Alkaline Phosphatase 62 50-136 U/L Total Protein 6.6 6.0-8.3 g/dL Albumin 2.7 L 3.5-5.0 g/dL Coagulation Labs: Test 08/08/24 05:17 Range/Units Prothrombin Time 10.4 9.6-11.6 SEC Prothromb Time International Ratio 0.96 0.85-1.15 Activated Partial Thromboplast Time 25.6 L 26.3-35.5 SEC Diagnostics / Radiology: 2D echo 08/07/2024: Conclusion Limited study. Left ventricular cavity size is normal. LVEF is 60-65%. Stage I diastolic dysfunction. LAE. No pericardial effusion. DICTATED BY: YAMILKA MCLEAN MD DATE: 08/07/24 1300 Impression and Plan: Right hip intertrochanteric fracture status post accidental fall 08/04/2024: -patient with currently undergoing open reduction internal fixation. Type 2 non STEMI (supply demand mismatch) in the setting of right hip fracture status post accidental fall 08/04/2024: Modest serial troponins of 490, 456, and 417 with no acute EKG changes: Coronary artery disease status post remote PTCA and stenting of the mid LAD with a 2.5 x 12 Xience Xpedition drug-eluting stent 07/30/2014: Coronary artery disease status post PTCA and stenting of the mid LAD proximal to her prior stent with a 3.0 x 12 mm Medtronic Jose Francisco [place] drug-eluting stent 08/06/2024: -patient has been loaded with aspirin and clopidogrel -preserved LV function documented on 2D echo 08/07/2024 with LVEF of 60-65% -continue dual antiplatelets today, and plan postoperative heparin/Lovenox beginning postoperative day one Normal LV systolic function with LVEF of 60-65%, mild concentric LVH, grade 2 diastolic dysfunction by 2D echocardiogram 07/29/2024: Repeat 2D echo 08/05 demonstrated an LVEF of 60-65%: No hemodynamically significant carotid stenosis by Doppler examination 07/27/2024: Small-vessel disease and mild cerebral atrophy on CT scan of the head 07/26/2024 : -monitor [employer] status Normochromic normocytic anemia: -serum iron and iron sat both low consistent with iron-deficiency. Begin Venofer 100 mg daily x3 days -continue PPI therapy Comorbidities: Essential hypertension Hyperlipidemia Continued tobacco abuse Stage III chronic renal insufficiency Type 2 diabetes with renal and circulatory manifestations Diabetic peripheral neuropathy KEYANA MAR MD Aug 08, 2024 09:47
[2024-08-08] MEDS: SUGAMMADEX SODIUM 200 MG/2 ML VIAL IV ONE (11:20)
[2024-08-08] MEDS ORDERED: FENTanyl CITRate PF 50 MCG/1 ML 2ML VIAL ONE ×2 (11:42)
[2024-08-08] MEDS ORDERED: proPOFol 10 MG/ML 20ML VIAL IV ONE (11:43)
[2024-08-08] MEDS ORDERED: rocuRONium bROMide 10MG/1ML 5ML VL ONE (11:43)
[2024-08-08] MEDS ORDERED: MIDAZOLAM HCL 1 MG/ML 2ML VIAL ONE (11:44)
[2024-08-08] MEDS ORDERED: phenylEPHRINE HCL 10 MG/ML 1ML VIAL IV ONE (11:45)
[2024-08-08] MEDS ORDERED: ROPivacaine 0.5% 5MG/ML 30ML ONE (11:49)
[2024-08-08] MEDS ORDERED: LIDOCAINE 1%-EPI 1:100,000 20 ML VIAL ONE (11:49)
[2024-08-08] MEDS ORDERED: ondanSETRON 4MG INJ ONE (12:22)
--- NOTE | 2024-08-08 13:13 | PN ---
[facility] PROGRESS NOTE Date of Service: Aug 08, 2024 Time of Service: 13:11 SUBJECTIVE: The patient has been seen and examined during my rounding, no acute events overnight, remains comfortably in bed, stable, BP 100/45, afebrile, heart rate controlled at 64, saturating 98% on 2 L via nasal cannula. Currently getting good pain control with current medical management, denies dizziness, no headache, no chest pain, no shortness shortness for breath, no nausea, no vomiting, no abdominal discomfort, no diarrhea, no constipation, no melena, no hematochezia, no hematemesis, no hematuria, no dysuria. Patient had left heart catheterization yesterday, tolerated well. 95 to 99% stenosis of the mid LAD proximal to the prior placed stent, status post percutaneous intervention to the mid left anterior descending artery with placement of drug-eluting stent (3.0 x 12 mm [place]) under intravascular ultrasound guidance. 08/08 the patient is seen and examined earlier this morning during my rounding, no acute events overnight, patient NPO, awaiting to be taken to the operating room today. Remains hemodynamically stable, afebrile, saturating normal on room air, getting good pain control with current medical management, no dizziness, no headache, no chest pain, shortness shortness for breath, no nausea, vomiting, no abdominal discomfort. REVIEW OF SYSTEMS CONSTITUTIONAL: Denies fevers, chills, or night sweats. No unintentional weight loss reported. NEUROLOGICAL: Denies headache, amaurosis fugax, motor weakness, sensory deficit, vertigo/spinning sensation, gait abnormalities, or tremors. ENT: No hearing loss, otalgia, otorrhea, rhinitis, rhinorrhea, hoarseness, or sore throat. CARDIOVASCULAR: Denies any exertional angina, dyspnea on exertion, orthopnea, paroxysmal nocturnal dyspnea, palpitations, life-threatening arrhythmias, claudication. PULMONARY: Denies any shortness of breath, cough, phlegm/sputum, hemoptysis, pleuritic chest pain. SLEEP: Denies morning headaches, daytime somnolence or napping. Denies difficulty falling asleep, staying asleep, waking from sleep. Denies knowledge of snoring. GASTROINTESTINAL: Denies any type of dysphagia to either liquids or solids. Denies nausea, vomiting, pyrosis, early satiety, abdominal pain, diarrhea, constipation, or changes in stool consistency or caliber. Denies coffee-ground emesis, hematemesis, hematochezia, or melanotic stools. GENITOURINARY: Denies frequency, urgency, nocturia, hematuria or incontinence (Storage/Irritative symptoms.) Low urinary stream, straining to void, urinary intermittency or hesitancy, splitting of the voiding stream, terminal dribbling. ENDOCRINOLOGIC: Denies polyuria, polydipsia, polyphagia or heat/cold intolerances. HEMATOLOGIC: Denies thrombophilia/previous clots, or coagulopathy/bleeding disorders. ONCOLOGIC: Denies personal history of malignancy. DERMATOLOGIC: Denies rashes or pruritus. PSYCHIATRIC: Denies any suicidal or homicidal ideation. Denies hallucinations. PHYSICAL EXAM GENERAL APPEARANCE: The patient is awake, alert, and oriented, in no acute cardiopulmonary distress. NEUROLOGICAL: Cranial nerves II-XII grossly intact. Motor is 5/5 in bilateral upper and lower extremities proximal to distal. No sensory deficits. HEENT: Face is symmetric. Pupils are equal and reactive. Extraocular movements are intact. NECK: Supple. No JVD. No thyromegaly. No submental, submandibular, pre- /postauricular, occipital or supraclavicular lymphadenopathy. CHEST: Normal chest expansion. No Telemetry. LUNGS: Absence of any rales, rhonchi or any wheezing. CARDIOVASCULAR: Regular. S1 and S2 normal. No appreciable rubs, murmurs or gallops. ABDOMEN: Soft, nontender, and nondistended. There is no rebound, voluntary guarding, or rigidity. : Deferred. No Reynoso. EXTREMITIES: right hip pain SKIN: No skin breakdown. Vital Signs (last 8hr) Date Time Temp Pulse Resp B/P (MAP) Pulse Ox O2 Delivery O2 Flow Rate FiO2 08/08/24 13:05 97.9 69 15 133/74 99 Nasal Cannula 3.0 08/08/24 13:00 97.9 70 15 135/70 99 Nasal Cannula 3.0 08/08/24 12:55 97.9 71 15 150/53 99 Nasal Cannula 3.0 28 08/08/24 12:50 97.9 68 15 135/69 99 Nasal Cannula 3.0 08/08/24 12:45 97.9 69 16 110/51 99 Nasal Cannula 3.0 28 08/08/24 12:40 97.9 68 15 111/65 99 Nasal Cannula 3.0 28 08/08/24 12:35 97.5 69 15 111/45 99 Nasal Cannula 3.0 28 08/08/24 12:30 97.5 69 15 122/44 99 Nasal Cannula 3.0 28 08/08/24 12:25 97.5 68 15 126/45 98 Nasal Cannula 3.0 28 08/08/24 12:20 97.5 68 15 117/45 98 Nasal Cannula 3.0 28 08/08/24 12:15 97.5 68 15 113/44 96 Nonrebreathing Mask 10.0 100 08/08/24 12:10 97.5 69 14 99/32 96 Nonrebreathing Mask 10.0 100 08/08/24 11:00 Room Air 08/08/24 09:20 97.7 72 16 138/55 97 Room Air 08/08/24 08:00 95 Room Air* 0 21 08/08/24 07:00 98.8 75 20 109/70 98 Room Air LABS: Laboratory: Test 08/08/24 09:18 08/08/24 05:17 08/07/24 19:36 08/07/24 06:10 Range/Units Whole Blood Glucose 161 H 70-110 MG/DL Prothrombin Time 10.4 9.6-11.6 SEC Prothromb Time International Ratio 0.96 0.85-1.15 Activated Partial Thromboplast Time 25.6 L 26.3-35.5 SEC Sodium Level 142 136-145 mmol/L Potassium Level 3.9 3.5-5.1 mmol/L Chloride Level 105 101-111 mmol/L Carbon Dioxide Level 32 21-32 mmol/L Blood Urea Nitrogen 22 H 7-18 mg/dL Creatinine 1.1 H 0.5-1.0 mg/dL Glomerular Filtration Rate Calc 50 >90 mL/min Random Glucose 156 H 70-105 mg/dL Total Calcium 8.9 8.5-10.1 mg/dL Magnesium Level 1.90 1.80-2.40 mg/dL Bedside Glucose Comment Notified Nurse Iron Level 35 L 50-170 mcg/dL Total Iron Binding Capacity 260 250-450 mcg/dL Percent Iron Saturation 13.4 L 22-44 % Test 08/07/24 06:03 08/06/24 15:02 Range/Units White Blood Count 11.6 H 4.8-10.8 K/uL Red Blood Count 2.65 L 4.00-5.50 MIL/uL Hemoglobin 8.0 L 12.0-16.0 g/dL Hematocrit 25.7 L 36-48 % Mean Corpuscular Volume 97.0 79-99 fL Mean Corpuscular Hemoglobin 30.2 27.0-33.0 pg Mean Corpuscular Hemoglobin Concent 31.1 L 32.0-36.0 g/dL Red Cell Distribution Width 13.2 11.0-15.5 % Platelet Count 209 130-400 K/uL Mean Platelet Volume 10.7 H 7.5-10.5 fL Immature Granulocyte % (Auto) 0.4 0-1 % Neutrophils (%) (Auto) 62.0 40.0-77.0 % Lymphocytes (%) (Auto) 27.1 21.0-51.0 % Monocytes (%) (Auto) 7.9 3.0-13.0 % Eosinophils (%) (Auto) 2.3 0.0-8.0 % Basophils (%) (Auto) 0.3 0.0-5.0 % Neutrophils # (Auto) 7.2 1.8-7.7 K/uL Lymphocytes # (Auto) 3.1 1.0-4.8 K/uL Monocytes # (Auto) 0.9 0.1-1.0 K/uL Eosinophils # (Auto) 0.27 0.00-0.70 K/uL Basophils # (Auto) 0.03 0.00-0.20 K/uL Absolute Immature Granulocyte (auto 0.05 0-1 K/uL Nucleated Red Blood Cells 0.0 0.0-0.19 % Ferritin 113 15-150 ng/mL Vitamin B12 Level 633 193-986 pg/mL Folic Acid (LAB) 19.20 2-20 ng/mL Red Blood Cell Morphology See comments Total Bilirubin 0.5 0.2-1.0 mg/dL Aspartate Amino Transf (AST/SGOT) 15 10-37 U/L Alanine Aminotransferase (ALT/SGPT) 18 12-78 U/L Alkaline Phosphatase 62 50-136 U/L Total Protein 6.6 6.0-8.3 g/dL Albumin 2.7 L 3.5-5.0 g/dL Current Medications Medications (Trade) Dose Ordered Sig/Kaylan Route PRN Reason Start Time Stop Time Status Last Admin Dose Admin Acetaminophen (TYLenol 325MG TAB) 650 mg Q4H PRN PO TEMPERATURE GREATER THAN 101.5 08/06/24 15:00 09/05/24 14:59 Acetaminophen (TYLenol 325MG TAB) 650 mg Q6H PRN PO MILD PAIN (1-3) 08/06/24 15:00 09/05/24 14:59 08/07/24 11:46 650 MG Aspirin (Aspirin 81mg Ec Tab) 81 mg DAILY PO 08/07/24 09:00 09/06/24 08:59 08/07/24 08:42 81 MG Clopidogrel Bisulfate (plaVIX 75MG) 75 mg DAILY PO 08/07/24 09:00 09/06/24 08:59 08/07/24 08:42 75 MG Dextrose (D50w) 50 ml AD PRN IV HYPOGLYCEMIA PROTOCOL 08/06/24 15:00 09/05/24 14:59 Famotidine (Pepcid 20mg Tab) 20 mg Q24H PO 08/08/24 12:00 09/07/24 11:59 Glucagon (Glucagon 1mg Kit) 1 mg AD PRN IM HYPOGLYCEMIA PROTOCOL 08/06/24 15:00 09/05/24 14:59 Insulin Human Regular (humuLIN R 100 UNIT/ML 3ML) INSULIN SLIDING SCAL... ACHS SQ 08/06/24 16:30 09/05/24 16:29 08/07/24 11:50 2 UNIT Iron Sucrose (VenoFER) 100 mg DAILY IV 08/08/24 12:00 08/10/24 09:01 Magnesium Sulfate 50 ml @ 0 mls/hr PROTOCOL PRN IV MAGNESIUM PROTOCOL 08/06/24 15:00 09/05/24 14:59 08/08/24 06:01 25 MLS/HR Metoprolol Succinate (TopROL XL) 12.5 mg ONCE PO 08/07/24 09:00 08/07/24 14:00 DC 08/07/24 08:40 12.5 MG Morphine Sulfate (morPHINE 2MG SYG) 2 mg Q4H PRN IVP SEVERE PAIN (7-10) 08/06/24 15:00 08/13/24 14:59 08/08/24 05:54 2 MG Ondansetron HCl (zoFRAN 4MG INJ) 4 mg Q6H PRN IVP NAUSEA/VOMITING 08/06/24 15:00 09/05/24 14:59 Potassium Chloride 100 ml @ 50 mls/hr AD PRN IV POTASSIUM PROTOCOL 08/06/24 15:00 09/05/24 14:59 Sodium Chloride 1,000 ml @ 100 mls/hr Q10H IV 08/06/24 18:00 08/06/24 20:59 DC DIAGNOSTICS / RADIOLOGY: [ ] ASSESSMENT: [Right hip intertrochanteric hip fracture, POA NSTEMI, Acute coronary syndrome, POA Diabetes mellitus, type 2, POA Hyperlipidemia Hypertension CKD stage IIIB 2D echo at [place] on 07/30/2024 showed left ventricular ejection fraction 60 65%, grade diastolic dysfunction Nuclear stress test January 03, 2022 normal stress test for vision indicated ejection fraction 64% ] PLAN: Remains admitted to the PCU Left heart catheterization done 08/06/2024 Follow Cardiology input and recommendation Continue to follow orthopedic input and recommendation We will continue to monitor kidney functions, renally dose medication and avoid nephrotoxic A.c. 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 Cleared by cardiology for orthopedic intervention. Patient NPO, scheduled to be taken to the operating room today. Continue to follow orthopedic input and recommendations, a.m. labs. Plan of action discussed, all questions answered. Total visit time spent greater than 30 minutes. CAROLINA PFEIFFER MD Aug 08, 2024 13:13
[2024-08-08] MEDS: IRON sUCROse COMPLEX 100 MG/5 ML VIAL IV SCH (15:06)
[2024-08-08] MEDS: FAMOTIDINE 20MG TAB PO SCH (15:06)
--- NOTE | 2024-08-08 17:26 | OP ---
DATE OF PROCEDURE: 08/08/2024 PREOPERATIVE DIAGNOSIS: Right hip intertrochanteric hip fracture. POSTOPERATIVE DIAGNOSIS: Right hip intertrochanteric hip fracture. PROCEDURE PERFORMED: Operative fixation of right hip intertrochanteric hip fracture with interlocking nailing. INTRAVENOUS FLUIDS: As per anesthesia. ESTIMATED BLOOD LOSS: 300 mL. COMPLICATIONS: None. SPECIMENS SENT: None. IMPLANTS USED: Renee gamma nail of dimensions 10 mm x 170 mm x 125-degree neck angle along with 1 proximal lag screw and 1 distal interlocking screw. ANESTHESIA: General anesthesia plus fascia iliaca block. ANTIBIOTICS USED: Clindamycin 900 mg. INDICATIONS FOR THE PROCEDURE: This is an 83-year-old lady who was initially seen in [facility] for a right hip intertrochanteric hip fracture. The patient was then subsequently transferred to [facility] because of her cardiac issues and she underwent some drug-eluting stents. The patient has been put on some blood thinners because of the stents. We discussed in detail with the patient and family regarding her condition and told the treatment options available and the risks and benefits. All questions and concerns were answered in detail. The patient and family verbalized understanding and preferred operative management, which is the standard of care. Informed consent was obtained. So again song writer recommended surgery for the patient. So we started our procedure by identifying the patient in the preoperative holding area and the correct patient, correct procedure site, correct extremity and the correct plan was confirmed and marked. DESCRIPTION OF PROCEDURE: The patient was taken to the operating room and placed in the supine position, underwent general anesthesia by the anesthetic team. After that, the patient also underwent fascia iliaca block. The patient was then positioned onto the [place] fracture table with the right lower extremity in traction and adduction and internal rotation on the left lower extremity in extension. The C-arm shots were satisfactory. Then, the right lower extremity was then prepped and draped in a sterile fashion. Repeat timeout was done, identifying the correct patient, correct procedure site, correct extremity and the correct plan. Then subsequently, we started our procedure by bringing in guidewire, placed it at the tip of the greater trochanter on the AP and lateral view and along the femoral shaft. We made a skin incision about 3 cm along the guidewire. Skin and subcutaneous tissue were incised. Blunt dissection was carried out and we reamed over the guidewire. After that, we inserted [place] gamma nail of the above-mentioned dimensions. The nail position was in satisfactory alignment on both AP and lateral view. Then, using the jig provided, we put in 1 proximal lag screw. The tip apex distance was less than 25 mm. Then, after confirming adequate reduction and rotation of the leg, we put in another distal interlocking screw through the jig provided. The patient tolerated the procedure well, no complication was encountered. All the wounds were thoroughly washed and then closed in sequential layers with 0 Vicryl, 2-0 Vicryls and sherley. Soft tissue dressing was applied. TID: [id number] RECEIPT: [id number]
[2024-08-09] VITALS (8 sets, daily range): BP systolic 119–134; BP diastolic 55–65; PULSE 67–84; RESP 16–18; TEMP 98.2–98.9; O2SAT 97–99
[2024-08-09] MEDS: CLINDAMYCIN IVPB 900MG/50ML 50 ML IV SCH (02:21)
[2024-08-09 04:05] LABS: HEMATOCRIT 26.1 % (36-48); MEAN CORPUSCULAR HEMOGLOBIN 30.9 pg (27.0-33.0); MEAN CORPUSCULAR HGB CONC 32.6 g/dL (32.0-36.0); MEAN CORPUSCULAR VOLUME 94.9 fL (79-99); RED BLOOD CELL COUNT(AUTO) 2.75 MIL/uL (4.00-5.50); RED CELL DISTRIBUTION WIDTH 13.3 % (11.0-15.5); WHITE BLOOD COUNT (AUTO) 13.5 K/uL (4.8-10.8)
[2024-08-09 04:34] LABS: ALBUMIN 2.3 g/dL (3.5-5.0); BILIRUBIN,TOTAL 0.7 mg/dL (0.2-1.0); CREATININE 1.3 mg/dL (0.5-1.0); MAGNESIUM 2.3 mg/dL (1.80-2.40); POTASSIUM 4.6 mmol/L (3.5-5.1); TOTAL PROTEIN, SERUM 6.2 g/dL (6.0-8.3)
[2024-08-09] MEDS: CLINDAMYCIN IVPB 900MG/50ML 50 ML IV ONE ×2 (08:38→09:26)
--- NOTE | 2024-08-09 08:49 | PN ---
[facility] CARDIOLOGY PROGRESS NOTE Date Patient Seen: Aug 09, 2024 Time of Visit: 08:43 Interval History: This 83-year-old Latin-Cypriot female, patient previously of the [facility] with a history of type 2 diabetes mellitus with circulatory and renal manifestations, hypertension, hyperlipidemia, tobacco abuse (ongoing, but only of a couple of cigarettes per day), peripheral arterial disease with stenoses in the right posterior tibial, left anterior tibial, and left dorsalis pedis arteries by prior Doppler exam, and known coronary artery disease status post remote PTCA and stenting of the mid LAD 07/30/2014 with a 2.5 x 12 mm Xience Xpedition drug-eluting stent. She had a brief admission to [facility] when she developed an episode of dizziness and possible left facial droop 07/27/[address] scan demonstrating atrophy, carotid Dopplers demonstrating no carotid disease, and a 2D echo demonstrating preserved LV function with an LVEF of 60-65%, mild concentric LVH, grade 2 diastolic dysfunction, and no significant valvular disease. She had an accidental fall 08/04/2024 and suffered a right hip intertrochanteric fracture initially hospitalized at [facility]. Serial troponins were screened and were modestly elevated at 490, 456, and 417 without acute ischemic EKG changes. She was transferred for cardiac catheterization 08/06/2024 demonstrating nonobstructive disease in the RCA and left circumflex with a 95-99% mid LAD stenosis several mm proximal to her previous stent in the mid LAD from 2013. She underwent PTCA and stenting with a 3.0 x 12 mm Medtronic jose francisco [place] drug-eluting stent without complication with jainism of flow to the distal LAD. There was a residual 100% apical LAD stenosis in a small apical LAD. A 2D echo 08/07/2024 demonstrated an LVEF of 60-65%. Today is postop day #1 s/p operative fixation of right hip intertrochanteric hip fracture with interlocking nailing with Dr. Garcia. She offers no chest pain or shortness of breath. She does have some discomfort at her operative site. Physical Examination: Patient is awake, alert and oriented x3. cardiac exam demonstrates a normal S1 and S2 and no audible murmur, gallop or rub. Lungs are clear to auscultation bilaterally. The right hip dressing is dry and intact. There is no pedal edema and her distal pedal pulses are palpable. Laboratory: Hematology Labs: Test 08/09/24 03:43 Range/Units White Blood Count 13.5 H 4.8-10.8 K/uL Red Blood Count 2.75 L 4.00-5.50 MIL/uL Hemoglobin 8.5 L 12.0-16.0 g/dL Hematocrit 26.1 L 36-48 % Mean Corpuscular Volume 94.9 79-99 fL Mean Corpuscular Hemoglobin 30.9 27.0-33.0 pg Mean Corpuscular Hemoglobin Concent 32.6 32.0-36.0 g/dL Red Cell Distribution Width 13.3 11.0-15.5 % Platelet Count 196 130-400 K/uL Mean Platelet Volume 11.2 H 7.5-10.5 fL Nucleated Red Blood Cells 0.0 0.0-0.19 % Chemistry Labs: Test 08/09/24 05:22 08/09/24 03:43 Range/Units Whole Blood Glucose 336 H 70-110 MG/DL Bedside Glucose Comment Notified Nurse Sodium Level 139 136-145 mmol/L Potassium Level 4.6 3.5-5.1 mmol/L Chloride Level 104 101-111 mmol/L Carbon Dioxide Level 29 21-32 mmol/L Blood Urea Nitrogen 26 H 7-18 mg/dL Creatinine 1.3 H 0.5-1.0 mg/dL Glomerular Filtration Rate Calc 41 >90 mL/min Random Glucose 293 #H 70-105 mg/dL Total Calcium 8.4 L 8.5-10.1 mg/dL Magnesium Level 2.30 1.80-2.40 mg/dL Total Bilirubin 0.7 0.2-1.0 mg/dL Aspartate Amino Transf (AST/SGOT) 34 10-37 U/L Alanine Aminotransferase (ALT/SGPT) 18 12-78 U/L Alkaline Phosphatase 52 50-136 U/L Total Protein 6.2 6.0-8.3 g/dL Albumin 2.3 L 3.5-5.0 g/dL Coagulation Labs: Test 08/08/24 05:17 Range/Units Prothrombin Time 10.4 9.6-11.6 SEC Prothromb Time International Ratio 0.96 0.85-1.15 Activated Partial Thromboplast Time 25.6 L 26.3-35.5 SEC Diagnostics / Radiology: 2D echo 08/07/2024: Conclusion Limited study. Left ventricular cavity size is normal. LVEF is 60-65%. Stage I diastolic dysfunction. LAE. No pericardial effusion. DICTATED BY: YAMILKA MCLEAN MD DATE: 08/07/24 1300 Impression and Plan: Right hip intertrochanteric fracture status post accidental fall 08/04/2024: -Today is postop day #1 s/p operative fixation of right hip intertrochanteric hip fracture with interlocking nailing with Dr. Garcia Type 2 non STEMI (supply demand mismatch) in the setting of right hip fracture status post accidental fall 08/04/2024: Modest serial troponins of 490, 456, and 417 with no acute EKG changes: Coronary artery disease status post remote PTCA and stenting of the mid LAD with a 2.5 x 12 Xience Xpedition drug-eluting stent 07/30/2014: Coronary artery disease status post PTCA and stenting of the mid LAD proximal to her prior stent with a 3.0 x 12 mm Medtronic [place] drug-eluting stent 08/06/2024: -continue dual antiplatelet therapy and we will begin heparin standard treatment protocol for 24 hours and discontinue in a.m. 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 Status post initiation of Venofer 100 mg daily x3 days -continue PPI therapy Comorbidities: Essential hypertension Hyperlipidemia Continued tobacco abuse Stage III chronic renal insufficiency Type 2 diabetes with renal and circulatory manifestations Diabetic peripheral neuropathy PHYSICIAN ATTESTATION OF PHYSICIAN INSTRUCTOR SUBSTITUTE COSMETOLOGY DOCUMENTATION: I attest that I discussed the case with the Physician Trim Crew Supervisor and made modifications to the Physician Trim Crew Supervisor's findings and plans of care as d ocumented above KATELYN OTT Aug 09, 2024 08:49 KEYANA MAR MD Aug 09, 2024 08:57
[2024-08-09] MEDS: HEParin 25,000 UNITS/250ML D5W 250 ML IV SCH (09:00)
[2024-08-09] MEDS ORDERED: HEParin 5,000 UNIT VIAL IV PRN (09:30)
--- NOTE | 2024-08-09 12:19 | PN ---
[facility] PROGRESS NOTE Date of Service: Aug 09, 2024 Time of Service: 12:15 SUBJECTIVE: The patient has been seen and examined during my rounding, no acute events overnight, remains comfortably in bed, stable, BP 100/45, afebrile, heart rate controlled at 64, saturating 98% on 2 L via nasal cannula. Currently getting good pain control with current medical management, denies dizziness, no headache, no chest pain, no shortness shortness for breath, no nausea, no vomiting, no abdominal discomfort, no diarrhea, no constipation, no melena, no hematochezia, no hematemesis, no hematuria, no dysuria. Patient had left heart catheterization yesterday, tolerated well. 95 to 99% stenosis of the mid LAD proximal to the prior placed stent, status post percutaneous intervention to the mid left anterior descending artery with placement of drug-eluting stent (3.0 x 12 mm [place]) under intravascular ultrasound guidance. 08/08 the patient is seen and examined earlier this morning during my rounding, no acute events overnight, patient NPO, awaiting to be taken to the operating room today. Remains hemodynamically stable, afebrile, saturating normal on room air, getting good pain control with current medical management, no dizziness, no headache, no chest pain, shortness shortness for breath, no nausea, vomiting, no abdominal discomfort. 08/09 the patient has been seen and examined earlier this morning during my rounding, no acute events overnight, comfortably in bed, hemodynamically stable, BP 121/65, afebrile, saturating 100% on 2 L nasal cannula. Heart rate controlled at 75. She denied chest pain, shortness shortness for breath, no nausea, no vomiting, no abdominal discomfort, no family members at bedside. Patient underwent right hip ORIF yesterday, tolerated procedure well. REVIEW OF SYSTEMS CONSTITUTIONAL: Denies fevers, chills, or night sweats. No unintentional weight loss reported. NEUROLOGICAL: Denies headache, amaurosis fugax, motor weakness, sensory deficit, vertigo/spinning sensation, gait abnormalities, or tremors. ENT: No hearing loss, otalgia, otorrhea, rhinitis, rhinorrhea, hoarseness, or sore throat. CARDIOVASCULAR: Denies any exertional angina, dyspnea on exertion, orthopnea, paroxysmal nocturnal dyspnea, palpitations, life-threatening arrhythmias, claudication. PULMONARY: Denies any shortness of breath, cough, phlegm/sputum, hemoptysis, pleuritic chest pain. SLEEP: Denies morning headaches, daytime somnolence or napping. Denies difficulty falling asleep, staying asleep, waking from sleep. Denies knowledge of snoring. GASTROINTESTINAL: Denies any type of dysphagia to either liquids or solids. Denies nausea, vomiting, pyrosis, early satiety, abdominal pain, diarrhea, constipation, or changes in stool consistency or caliber. Denies coffee-ground emesis, hematemesis, hematochezia, or melanotic stools. GENITOURINARY: Denies frequency, urgency, nocturia, hematuria or incontinence (Storage/Irritative symptoms.) Low urinary stream, straining to void, urinary intermittency or hesitancy, splitting of the voiding stream, terminal dribbling. ENDOCRINOLOGIC: Denies polyuria, polydipsia, polyphagia or heat/cold intolerances. HEMATOLOGIC: Denies thrombophilia/previous clots, or coagulopathy/bleeding disorders. ONCOLOGIC: Denies personal history of malignancy. DERMATOLOGIC: Denies rashes or pruritus. PSYCHIATRIC: Denies any suicidal or homicidal ideation. Denies hallucinations. PHYSICAL EXAM GENERAL APPEARANCE: The patient is awake, alert, and oriented, in no acute cardiopulmonary distress. NEUROLOGICAL: Cranial nerves II-XII grossly intact. Motor is 5/5 in bilateral upper and lower extremities proximal to distal. No sensory deficits. HEENT: Face is symmetric. Pupils are equal and reactive. Extraocular movements are intact. NECK: Supple. No JVD. No thyromegaly. No submental, submandibular, pre- /postauricular, occipital or supraclavicular lymphadenopathy. CHEST: Normal chest expansion. No Telemetry. LUNGS: Absence of any rales, rhonchi or any wheezing. CARDIOVASCULAR: Regular. S1 and S2 normal. No appreciable rubs, murmurs or gallops. ABDOMEN: Soft, nontender, and nondistended. There is no rebound, voluntary guarding, or rigidity. : Deferred. No Reynoso. EXTREMITIES: right hip pain SKIN: No skin breakdown. Vital Signs (last 8hr) Date Time Temp Pulse Resp B/P (MAP) Pulse Ox O2 Delivery O2 Flow Rate FiO2 08/09/24 12:01 98.6 75 18 121/65 100 Room Air 08/09/24 08:38 98.4 67 18 122/55 100 Room Air 08/09/24 07:00 99 Room Air* 0 21 LABS: Laboratory: Test 08/09/24 11:17 08/09/24 09:29 08/09/24 05:22 08/09/24 03:43 Range/Units Whole Blood Glucose 351 H 70-110 MG/DL Activated Partial Thromboplast Time 29.9 26.3-35.5 SEC Bedside Glucose Comment Notified Nurse White Blood Count 13.5 H 4.8-10.8 K/uL Red Blood Count 2.75 L 4.00-5.50 MIL/uL Hemoglobin 8.5 L 12.0-16.0 g/dL Hematocrit 26.1 L 36-48 % Mean Corpuscular Volume 94.9 79-99 fL Mean Corpuscular Hemoglobin 30.9 27.0-33.0 pg Mean Corpuscular Hemoglobin Concent 32.6 32.0-36.0 g/dL Red Cell Distribution Width 13.3 11.0-15.5 % Platelet Count 196 130-400 K/uL Mean Platelet Volume 11.2 H 7.5-10.5 fL Nucleated Red Blood Cells 0.0 0.0-0.19 % Sodium Level 139 136-145 mmol/L Potassium Level 4.6 3.5-5.1 mmol/L Chloride Level 104 101-111 mmol/L Carbon Dioxide Level 29 21-32 mmol/L Blood Urea Nitrogen 26 H 7-18 mg/dL Creatinine 1.3 H 0.5-1.0 mg/dL Glomerular Filtration Rate Calc 41 >90 mL/min Random Glucose 293 #H 70-105 mg/dL Total Calcium 8.4 L 8.5-10.1 mg/dL Magnesium Level 2.30 1.80-2.40 mg/dL Total Bilirubin 0.7 0.2-1.0 mg/dL Aspartate Amino Transf (AST/SGOT) 34 10-37 U/L Alanine Aminotransferase (ALT/SGPT) 18 12-78 U/L Alkaline Phosphatase 52 50-136 U/L Total Protein 6.2 6.0-8.3 g/dL Albumin 2.3 L 3.5-5.0 g/dL Test 08/08/24 05:17 Range/Units Prothrombin Time 10.4 9.6-11.6 SEC Prothromb Time International Ratio 0.96 0.85-1.15 Current Medications Medications (Trade) Dose Ordered Sig/Kaylan Route PRN Reason Start Time Stop Time Status Last Admin Dose Admin Acetaminophen (TYLenol 325MG TAB) 650 mg Q4H PRN PO TEMPERATURE GREATER THAN 101.5 08/06/24 15:00 09/05/24 14:59 Acetaminophen (TYLenol 325MG TAB) 650 mg Q6H PRN PO MILD PAIN (1-3) 08/06/24 15:00 09/05/24 14:59 08/07/24 11:46 650 MG Acetaminophen/ Hydrocodone Bitart (NORco 5/325MG) 1 tab Q4H PRN PO MODERATE PAIN (4-6) 08/09/24 02:30 08/14/24 02:29 Aspirin (Aspirin 81mg Ec Tab) 81 mg DAILY PO 08/07/24 09:00 09/06/24 08:59 08/09/24 08:37 81 MG Clindamycin HCl/ Dextrose 50 ml @ 100 mls/hr Q8H IV 08/09/24 02:00 08/09/24 02:35 DC 08/09/24 02:21 100 MLS/HR Clopidogrel Bisulfate (plaVIX 75MG) 75 mg DAILY PO 08/07/24 09:00 09/06/24 08:59 08/09/24 08:37 75 MG Dextrose (D50w) 50 ml AD PRN IV HYPOGLYCEMIA PROTOCOL 08/06/24 15:00 09/05/24 14:59 Famotidine (Pepcid 20mg Tab) 20 mg Q24H PO 08/08/24 12:00 09/07/24 11:59 08/08/24 15:06 20 MG Glucagon (Glucagon 1mg Kit) 1 mg AD PRN IM HYPOGLYCEMIA PROTOCOL 08/06/24 15:00 09/05/24 14:59 Heparin Sodium (Porcine) (HEParin 5,000 UNIT VIAL) *calculation based on ACTUAL B... AD PRN IV HEPARIN PROTOCOL 08/09/24 09:30 09/08/24 09:29 Heparin Sodium/ Dextrose 250 ml @ 0 mls/hr Q6H IV 08/09/24 09:30 09/08/24 09:29 08/09/24 09:29 17 MLS/HR Insulin Human Regular (humuLIN R 100 UNIT/ML 3ML) INSULIN SLIDING SCAL... ACHS SQ 08/06/24 16:30 09/05/24 16:29 08/09/24 05:56 7 UNIT Iron Sucrose (VenoFER) 100 mg DAILY IV 08/08/24 12:00 08/10/24 09:01 08/09/24 08:37 100 MG Magnesium Sulfate 50 ml @ 0 mls/hr PROTOCOL PRN IV MAGNESIUM PROTOCOL 08/06/24 15:00 09/05/24 14:59 08/08/24 06:01 25 MLS/HR Metoprolol Succinate (TopROL XL) 12.5 mg ONCE PO 08/07/24 09:00 08/07/24 14:00 DC 08/07/24 08:40 12.5 MG Morphine Sulfate (morPHINE 2MG SYG) 2 mg [id number] PRN IVP SEVERE PAIN (7-10) 08/09/24 02:30 08/16/24 02:29 Morphine Sulfate (morPHINE 2MG SYG) 2 mg Q4H PRN IVP SEVERE PAIN (7-10) 08/06/24 15:00 08/09/24 02:17 DC 08/08/24 13:45 2 MG Ondansetron HCl (zoFRAN 4MG INJ) 4 mg Q6H PRN IVP NAUSEA/VOMITING 08/06/24 15:00 09/05/24 14:59 Potassium Chloride 100 ml @ 50 mls/hr AD PRN IV POTASSIUM PROTOCOL 08/06/24 15:00 09/05/24 14:59 Sodium Chloride 1,000 ml @ 100 mls/hr Q10H IV 08/06/24 18:00 08/06/24 20:59 DC DIAGNOSTICS / RADIOLOGY: [ ] ASSESSMENT: [Right hip intertrochanteric hip fracture, POA s/p ORIF 08/08/2024 NSTEMI, Acute coronary syndrome, POA Diabetes mellitus, type 2, POA Hyperlipidemia Hypertension CKD stage IIIB 2D echo at [place] on 07/30/2024 showed left ventricular ejection fraction 60 65%, grade diastolic dysfunction Nuclear stress test January 03, 2022 normal stress test for vision indicated ejection fraction 64% ] PLAN: Downgraded patient to medical floor Left heart catheterization done 08/06/2024 Follow Cardiology input and recommendation Continue to follow orthopedic input and recommendation Continue pain medication with the adjustment as needed We will continue to monitor kidney functions, renally dose medication and avoid nephrotoxic A.c. 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 Cleared by cardiology for orthopedic intervention. PATIENT UNDERWENT SUCCESSFUL OPEN FIXATION OF RIGHT HIP INTERTROCHANTERIC FRACTURE WITH A INTERLOCKING NAILING 08/09/2024. Tolerated the procedure well. Continue to follow a.m. labs. The patient to be downgraded to the medical floor. No family members at bedside to discuss plan of care. We will discuss discharge plan with case management Total visit time spent greater than 30 minutes. CAROLINA PFEIFFER MD Aug 09, 2024 12:19
[2024-08-09 15:50] LABS: HEMATOCRIT 24.9 % (36-48); MEAN CORPUSCULAR HGB CONC 33.3 g/dL (32.0-36.0); MEAN CORPUSCULAR VOLUME 96.1 fL (79-99); PLATELET COUNT (AUTO) 196 K/uL (130-400); RED BLOOD CELL COUNT(AUTO) 2.59 MIL/uL (4.00-5.50); RED CELL DISTRIBUTION WIDTH 13.2 % (11.0-15.5); WHITE BLOOD COUNT (AUTO) 16.5 K/uL (4.8-10.8)
[2024-08-09 16:07] LABS: PROTHROMBIN TIME 10.8 SEC (9.6-11.6)
[2024-08-09 16:30] LABS: PARTIAL THROMBOPLASTIN TIME 103.6 SEC (26.3-35.5)
[2024-08-09 16:47] LABS: BASOPHILS # (AUTO) 0.03 K/uL (0.00-0.20); BASOPHILS % (AUTO) 0.2 % (0.0-5.0); EOSINOPHILS # (AUTO) 0.21 K/uL (0.00-0.70); EOSINOPHILS % (AUTO) 1.3 % (0.0-8.0); IMMATURE GRANULOCYTE ABSOLUTE 0.09 K/uL (0-1); LYMPHOCYTES # (AUTO) 2.8 K/uL (1.0-4.8); LYMPHOCYTES % (AUTO) 16.8 % (21.0-51.0); MONOCYTES # (AUTO) 1.2 K/uL (0.1-1.0); MONOCYTES % (AUTO) 7.4 % (3.0-13.0); NEUTROPHILS # (AUTO) 12.1 K/uL (1.8-7.7); NEUTROPHILS % (AUTO) 73.8 % (40.0-77.0)
[2024-08-09] MEDS: HYDROcodone/APAP 5/325 1 TAB TABLET PO PRN (20:28)
[2024-08-09] MEDS: morPHINE 2 MG SYG IVP PRN (22:42)
[2024-08-10] VITALS (7 sets, daily range): BP systolic 99–119; BP diastolic 48–86; PULSE 63–75; RESP 16–18; TEMP 98.4–98.8; O2SAT 97
[2024-08-10 00:14] LABS: INR 0.97 (0.85-1.15); PROTHROMBIN TIME 10.5 SEC (9.6-11.6)
[2024-08-10 00:16] LABS: PARTIAL THROMBOPLASTIN TIME 88.5 SEC (26.3-35.5)
[2024-08-10 06:51] LABS: BASOPHILS # (AUTO) 0.05 K/uL (0.00-0.20); BASOPHILS % (AUTO) 0.3 % (0.0-5.0); EOSINOPHILS # (AUTO) 0.46 K/uL (0.00-0.70); EOSINOPHILS % (AUTO) 2.7 % (0.0-8.0); HEMATOCRIT 22.4 % (36-48); IMMATURE GRANULOCYTE ABSOLUTE 0.11 K/uL (0-1); LYMPHOCYTES # (AUTO) 5.1 K/uL (1.0-4.8); LYMPHOCYTES % (AUTO) 30.4 % (21.0-51.0); MEAN CORPUSCULAR HEMOGLOBIN 31.9 pg (27.0-33.0); MEAN CORPUSCULAR VOLUME 96.6 fL (79-99); MONOCYTES # (AUTO) 1.2 K/uL (0.1-1.0); MONOCYTES % (AUTO) 6.8 % (3.0-13.0); NEUTROPHILS # (AUTO) 9.9 K/uL (1.8-7.7); NEUTROPHILS % (AUTO) 59.1 % (40.0-77.0); PLATELET COUNT (AUTO) 192 K/uL (130-400); RED BLOOD CELL COUNT(AUTO) 2.32 MIL/uL (4.00-5.50); RED CELL DISTRIBUTION WIDTH 13.1 % (11.0-15.5); WHITE BLOOD COUNT (AUTO) 16.8 K/uL (4.8-10.8)
[2024-08-10 08:06] LABS: ALBUMIN 2.3 g/dL (3.5-5.0); BILIRUBIN,TOTAL 0.5 mg/dL (0.2-1.0); CREATININE 1.1 mg/dL (0.5-1.0); MAGNESIUM 1.8 mg/dL (1.80-2.40); POTASSIUM 3.9 mmol/L (3.5-5.1); TOTAL PROTEIN, SERUM 5.9 g/dL (6.0-8.3)
[2024-08-10] MEDS: ondanSETRON 4MG INJ IVP PRN (08:09)
--- NOTE | 2024-08-10 08:54 | PN ---
[facility] CARDIOLOGY PROGRESS NOTE Date Patient Seen: Aug 10, 2024 Time of Visit: 08:48 Interval History: This 83-year-old Latin-Algerian female, patient previously of the [facility] with a history of type 2 diabetes mellitus with circulatory and renal manifestations, hypertension, hyperlipidemia, tobacco abuse (ongoing, but only of a couple of cigarettes per day), peripheral arterial disease with stenoses in the right posterior tibial, left anterior tibial, and left dorsalis pedis arteries by prior Doppler exam, and known coronary artery disease status post remote PTCA and stenting of the mid LAD 07/30/2014 with a 2.5 x 12 mm Xience Xpedition drug-eluting stent. She had a brief admission to [facility] when she developed an episode of dizziness and possible left facial droop 07/27/[address] scan demonstrating atrophy, carotid Dopplers demonstrating no carotid disease, and a 2D echo demonstrating preserved LV function with an LVEF of 60-65%, mild concentric LVH, grade 2 diastolic dysfunction, and no significant valvular disease. She had an accidental fall 08/04/2024 and suffered a right hip intertrochanteric fracture initially hospitalized at [facility]. Serial troponins were screened and were modestly elevated at 490, 456, and 417 without acute ischemic EKG changes. She was transferred for cardiac catheterization 08/06/2024 demonstrating nonobstructive disease in the RCA and left circumflex with a 95-99% mid LAD stenosis several mm proximal to her previous stent in the mid LAD from 2013. She underwent PTCA and stenting with a 3.0 x 12 mm Medtronic jose francisco Hahira drug-eluting stent without complication with bahai of flow to the distal LAD. There was a residual 100% apical LAD stenosis in a small apical LAD. A 2D echo 08/07/2024 demonstrated an LVEF of 60-65%. Today is postop day #2 s/p operative fixation of right hip intertrochanteric hip fracture with interlocking nailing with Dr. Garcia. They attempted to get her up to the chair this morning and the patient bear down and had a vagal response with heart rate dropping to 53 beats per minute, sinus bradycardia. She reported feeling near syncopal. Her hemoglobin this morning is 7.4 and her heparin has been discontinued. Physical Examination: Patient is awake, alert and oriented x3. cardiac exam demonstrates a normal S1 and S2 and no audible murmur, gallop or rub. Lungs are clear to auscultation bilaterally. The right hip incision is well approximated. There is only scant discharge noted and no obvious hematoma to operative site. There is no pedal edema and her distal pedal pulses are palpable. Laboratory: Hematology Labs: Test 08/10/24 06:32 Range/Units White Blood Count 16.8 H 4.8-10.8 K/uL Red Blood Count 2.32 L 4.00-5.50 MIL/uL Hemoglobin 7.4 L 12.0-16.0 g/dL Hematocrit 22.4 L 36-48 % Mean Corpuscular Volume 96.6 79-99 fL Mean Corpuscular Hemoglobin 31.9 27.0-33.0 pg Mean Corpuscular Hemoglobin Concent 33.0 32.0-36.0 g/dL Red Cell Distribution Width 13.1 11.0-15.5 % Platelet Count 192 130-400 K/uL Mean Platelet Volume 10.8 H 7.5-10.5 fL Immature Granulocyte % (Auto) 0.7 0-1 % Neutrophils (%) (Auto) 59.1 40.0-77.0 % Lymphocytes (%) (Auto) 30.4 21.0-51.0 % Monocytes (%) (Auto) 6.8 3.0-13.0 % Eosinophils (%) (Auto) 2.7 0.0-8.0 % Basophils (%) (Auto) 0.3 0.0-5.0 % Neutrophils # (Auto) 9.9 H 1.8-7.7 K/uL Lymphocytes # (Auto) 5.1 H 1.0-4.8 K/uL Monocytes # (Auto) 1.2 H 0.1-1.0 K/uL Eosinophils # (Auto) 0.46 0.00-0.70 K/uL Basophils # (Auto) 0.05 0.00-0.20 K/uL Absolute Immature Granulocyte (auto 0.11 0-1 K/uL Nucleated Red Blood Cells 0.0 0.0-0.19 % Chemistry Labs: Test 08/10/24 06:32 08/10/24 05:11 08/09/24 05:22 Range/Units Sodium Level 140 136-145 mmol/L Potassium Level 3.9 3.5-5.1 mmol/L Chloride Level 104 101-111 mmol/L Carbon Dioxide Level 31 21-32 mmol/L Blood Urea Nitrogen 22 H 7-18 mg/dL Creatinine 1.1 H 0.5-1.0 mg/dL Glomerular Filtration Rate Calc 50 >90 mL/min Random Glucose 123 H 70-105 mg/dL Total Calcium 8.2 L 8.5-10.1 mg/dL Magnesium Level 1.80 1.80-2.40 mg/dL Total Bilirubin 0.5 0.2-1.0 mg/dL Aspartate Amino Transf (AST/SGOT) 25 10-37 U/L Alanine Aminotransferase (ALT/SGPT) 18 12-78 U/L Alkaline Phosphatase 49 L 50-136 U/L Total Protein 5.9 L 6.0-8.3 g/dL Albumin 2.3 L 3.5-5.0 g/dL Whole Blood Glucose 118 H 70-110 MG/DL Bedside Glucose Comment Notified Nurse Coagulation Labs: Test 08/10/24 06:32 08/09/24 23:47 Range/Units Activated Partial Thromboplast Time 116.7 #*H 26.3-35.5 SEC Prothrombin Time 10.5 9.6-11.6 SEC Prothromb Time International Ratio 0.97 0.85-1.15 Diagnostics / Radiology: 2D echo 08/07/2024: Conclusion Limited study. Left ventricular cavity size is normal. LVEF is 60-65%. Stage I diastolic dysfunction. LAE. No pericardial effusion. DICTATED BY: YAMILKA MCLEAN MD DATE: 08/07/24 1300 Impression and Plan: Right hip intertrochanteric fracture status post accidental fall 08/04/2024: -Today is postop day #2 s/p operative fixation of right hip intertrochanteric hip fracture with interlocking nailing with Dr. Garcia Acute blood loss anemia on chronic anemia: Normochromic normocytic anemia: -serum iron and iron sat both low consistent with iron-deficiency. Status post initiation of Venofer 100 mg daily x3 days -the patient will benefit from 1 unit of PRBCs given her coronary artery disease comorbidity -proceed with transfusion of 1 unit of PRBCs today -blood pressure has been marginal and we will hold on resumption of her lisinopril and metoprolol and reassess blood pressure and heart rate in a.m. -continue PPI therapy Type 2 non STEMI (supply demand mismatch) in the setting of right hip fracture status post accidental fall 08/04/2024: Modest serial troponins of 490, 456, and 417 with no acute EKG changes: Coronary artery disease status post remote PTCA and stenting of the mid LAD with a 2.5 x 12 Xience Xpedition drug-eluting stent 07/30/2014: Coronary artery disease status post PTCA and stenting of the mid LAD proximal to her prior stent with a 3.0 x 12 mm Medtronic Jose Francisco Hahira drug-eluting stent 08/06/2024: -IV heparin discontinued this morning -she will continue with dual antiplatelet therapy to complete 1 year status post PTCA and stenting 08/06/2024 -preserved LV function documented on 2D echo 08/07/2024 with LVEF of 60-65% Normal LV systolic function with LVEF of 60-65%, mild concentric LVH, grade 2 diastolic dysfunction by 2D echocardiogram 07/29/2024: Repeat 2D echo 08/05 demonstrated an LVEF of 60-65%: No hemodynamically significant carotid stenosis by Doppler examination 07/27/2024: Small-vessel disease and mild cerebral atrophy on CT scan of the head 07/26/20 24: -stable and offers no neurological symptoms -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 Reassess in a.m. for resumption of her cardiac regimen Comorbidities: Essential hypertension Hyperlipidemia Continued tobacco abuse Stage III chronic renal insufficiency Type 2 diabetes with renal and circulatory manifestations Diabetic peripheral neuropathy KATELYN OTT Aug 10, 2024 08:54
[2024-08-10] MEDS: LACTULOSE 20 GM/30 ML UDCUP PO ONE (10:55)
--- NOTE | 2024-08-10 12:22 | PN ---
[facility] PROGRESS NOTE Date of Service: Aug 10, 2024 Time of Service: 12:09 SUBJECTIVE: The patient has been seen and examined during my rounding, no acute events overnight, remains comfortably in bed, stable, BP 100/45, afebrile, heart rate controlled at 64, saturating 98% on 2 L via nasal cannula. Currently getting good pain control with current medical management, denies dizziness, no headache, no chest pain, no shortness shortness for breath, no nausea, no vomiting, no abdominal discomfort, no diarrhea, no constipation, no melena, no hematochezia, no hematemesis, no hematuria, no dysuria. Patient had left heart catheterization yesterday, tolerated well. 95 to 99% stenosis of the mid LAD proximal to the prior placed stent, status post percutaneous intervention to the mid left anterior descending artery with placement of drug-eluting stent (3.0 x 12 mm [place]) under intravascular ultrasound guidance. 08/08 the patient is seen and examined earlier this morning during my rounding, no acute events overnight, patient NPO, awaiting to be taken to the operating room today. Remains hemodynamically stable, afebrile, saturating normal on room air, getting good pain control with current medical management, no dizziness, no headache, no chest pain, shortness shortness for breath, no nausea, vomiting, no abdominal discomfort. 08/09 the patient has been seen and examined earlier this morning during my rounding, no acute events overnight, comfortably in bed, hemodynamically stable, BP 121/65, afebrile, saturating 100% on 2 L nasal cannula. Heart rate controlled at 75. She denied chest pain, shortness shortness for breath, no nausea, no vomiting, no abdominal discomfort, no family members at bedside. Patient underwent right hip ORIF yesterday, tolerated procedure well. 08/10 the patient has been seen and examined earlier this morning during my r ounding, no acute events overnight, during my visit the patient is awake, following commands, has not had a bowel movement for the last few days, however she is passing gas. BP 99/50, heart rate controlled at 63, afebrile, saturating normal on room air. She denies dizziness, no headache, no blurry vision, no chest pain, shortness shortness for breath, no nausea, no vomiting, no d iscomfort, no family members at bedside during my visit. REVIEW OF SYSTEMS CONSTITUTIONAL: Denies fevers, chills, or night sweats. No unintentional weight loss reported. NEUROLOGICAL: Denies headache, amaurosis fugax, motor weakness, sensory deficit, vertigo/spinning sensation, gait abnormalities, or tremors. ENT: No hearing loss, otalgia, otorrhea, rhinitis, rhinorrhea, hoarseness, or sore throat. CARDIOVASCULAR: Denies any exertional angina, dyspnea on exertion, orthopnea, paroxysmal nocturnal dyspnea, palpitations, life-threatening arrhythmias, claudication. PULMONARY: Denies any shortness of breath, cough, phlegm/sputum, hemoptysis, pleuritic chest pain. SLEEP: Denies morning headaches, daytime somnolence or napping. Denies difficulty falling asleep, staying asleep, waking from sleep. Denies knowledge of snoring. GASTROINTESTINAL: Denies any type of dysphagia to either liquids or solids. Denies nausea, vomiting, pyrosis, early satiety, abdominal pain, diarrhea, constipation, or changes in stool consistency or caliber. Denies coffee-ground emesis, hematemesis, hematochezia, or melanotic stools. GENITOURINARY: Denies frequency, urgency, nocturia, hematuria or incontinence (Storage/Irritative symptoms.) Low urinary stream, straining to void, urinary intermittency or hesitancy, splitting of the voiding stream, terminal dribbling. ENDOCRINOLOGIC: Denies polyuria, polydipsia, polyphagia or heat/cold intolerances. HEMATOLOGIC: Denies thrombophilia/previous clots, or coagulopathy/bleeding disorders. ONCOLOGIC: Denies personal history of malignancy. DERMATOLOGIC: Denies rashes or pruritus. PSYCHIATRIC: Denies any suicidal or homicidal ideation. Denies hallucinations. PHYSICAL EXAM GENERAL APPEARANCE: The patient is awake, alert, and oriented, in no acute cardiopulmonary distress. NEUROLOGICAL: Cranial nerves II-XII grossly intact. Motor is 5/5 in bilateral upper and lower extremities proximal to distal. No sensory deficits. HEENT: Face is symmetric. Pupils are equal and reactive. Extraocular movements are intact. NECK: Supple. No JVD. No thyromegaly. No submental, submandibular, pre- /postauricular, occipital or supraclavicular lymphadenopathy. CHEST: Normal chest expansion. No Telemetry. LUNGS: Absence of any rales, rhonchi or any wheezing. CARDIOVASCULAR: Regular. S1 and S2 normal. No appreciable rubs, murmurs or gallops. ABDOMEN: Soft, nontender, and nondistended. There is no rebound, voluntary guarding, or rigidity. : Deferred. No [place]. EXTREMITIES: right hip pain SKIN: No skin breakdown. Vital Signs (last 8hr) Date Time Temp Pulse Resp B/P (MAP) Pulse Ox O2 Delivery O2 Flow Rate FiO2 08/10/24 08:32 98.4 63 18 99/50 96 Room Air 08/10/24 04:17 98.8 73 18 109/51 99 Room Air LABS: Laboratory: Test 08/10/24 06:32 08/10/24 05:11 08/09/24 23:47 08/09/24 05:22 Range/Units White Blood Count 16.8 H 4.8-10.8 K/uL Red Blood Count 2.32 L 4.00-5.50 MIL/uL Hemoglobin 7.4 L 12.0-16.0 g/dL Hematocrit 22.4 L 36-48 % Mean Corpuscular Volume 96.6 79-99 fL Mean Corpuscular Hemoglobin 31.9 27.0-33.0 pg Mean Corpuscular Hemoglobin Concent 33.0 32.0-36.0 g/dL Red Cell Distribution Width 13.1 11.0-15.5 % Platelet Count 192 130-400 K/uL Mean Platelet Volume 10.8 H 7.5-10.5 fL Immature Granulocyte % (Auto) 0.7 0-1 % Neutrophils (%) (Auto) 59.1 40.0-77.0 % Lymphocytes (%) (Auto) 30.4 21.0-51.0 % Monocytes (%) (Auto) 6.8 3.0-13.0 % Eosinophils (%) (Auto) 2.7 0.0-8.0 % Basophils (%) (Auto) 0.3 0.0-5.0 % Neutrophils # (Auto) 9.9 H 1.8-7.7 K/uL Lymphocytes # (Auto) 5.1 H 1.0-4.8 K/uL Monocytes # (Auto) 1.2 H 0.1-1.0 K/uL Eosinophils # (Auto) 0.46 0.00-0.70 K/uL Basophils # (Auto) 0.05 0.00-0.20 K/uL Absolute Immature Granulocyte (auto 0.11 0-1 K/uL Nucleated Red Blood Cells 0.0 0.0-0.19 % Activated Partial Thromboplast Time 116.7 #*H 26.3-35.5 SEC Sodium Level 140 136-145 mmol/L Potassium Level 3.9 3.5-5.1 mmol/L Chloride Level 104 101-111 mmol/L Carbon Dioxide Level 31 21-32 mmol/L Blood Urea Nitrogen 22 H 7-18 mg/dL Creatinine 1.1 H 0.5-1.0 mg/dL Glomerular Filtration Rate Calc 50 >90 mL/min Random Glucose 123 H 70-105 mg/dL Total Calcium 8.2 L 8.5-10.1 mg/dL Magnesium Level 1.80 1.80-2.40 mg/dL Total Bilirubin 0.5 0.2-1.0 mg/dL Aspartate Amino Transf (AST/SGOT) 25 10-37 U/L Alanine Aminotransferase (ALT/SGPT) 18 12-78 U/L Alkaline Phosphatase 49 L 50-136 U/L Total Protein 5.9 L 6.0-8.3 g/dL Albumin 2.3 L 3.5-5.0 g/dL Whole Blood Glucose 118 H 70-110 MG/DL Prothrombin Time 10.5 9.6-11.6 SEC Prothromb Time International Ratio 0.97 0.85-1.15 Bedside Glucose Comment Notified Nurse Current Medications Medications (Trade) Dose Ordered Sig/Kaylan Route PRN Reason Start Time Stop Time Status Last Admin Dose Admin Acetaminophen (TYLenol 325MG TAB) 650 mg Q4H PRN PO TEMPERATURE GREATER THAN 101.5 08/06/24 15:00 09/05/24 14:59 Acetaminophen (TYLenol 325MG TAB) 650 mg Q6H PRN PO MILD PAIN (1-3) 08/06/24 15:00 09/05/24 14:59 08/07/24 11:46 650 MG Acetaminophen/ Hydrocodone Bitart (NORco 5/325MG) 1 tab Q4H PRN PO MODERATE PAIN (4-6) 08/09/24 02:30 08/14/24 02:29 08/10/24 08:10 1 TAB Aspirin (Aspirin 81mg Ec Tab) 81 mg DAILY PO 08/07/24 09:00 09/06/24 08:59 08/10/24 08:09 81 MG Clindamycin HCl/ Dextrose 50 ml @ 100 mls/hr Q8H IV 08/09/24 02:00 08/09/24 02:35 DC 08/09/24 02:21 100 MLS/HR Clopidogrel Bisulfate (plaVIX 75MG) 75 mg DAILY PO 08/07/24 09:00 09/06/24 08:59 08/10/24 08:09 75 MG Dextrose (D50w) 50 ml AD PRN IV HYPOGLYCEMIA PROTOCOL 08/06/24 15:00 09/05/24 14:59 Famotidine (Pepcid 20mg Tab) 20 mg Q24H PO 08/08/24 12:00 09/07/24 11:59 08/09/24 12:48 20 MG Glucagon (Glucagon 1mg Kit) 1 mg AD PRN IM HYPOGLYCEMIA PROTOCOL 08/06/24 15:00 09/05/24 14:59 Heparin Sodium (Porcine) (HEParin 5,000 UNIT VIAL) *calculation based on ACTUAL B... AD PRN IV HEPARIN PROTOCOL 08/09/24 09:30 08/10/24 07:45 DC Heparin Sodium/ Dextrose 250 ml @ 0 mls/hr Q6H IV 08/09/24 09:30 09/08/24 09:29 08/09/24 09:29 17 MLS/HR Insulin Human Regular (humuLIN R 100 UNIT/ML 3ML) INSULIN SLIDING SCAL... ACHS SQ 08/06/24 16:30 09/05/24 16:29 08/09/24 20:31 2 UNIT Iron Sucrose (VenoFER) 100 mg DAILY IV 08/08/24 12:00 08/10/24 09:01 DC 08/10/24 08:18 100 MG Magnesium Sulfate 50 ml @ 0 mls/hr PROTOCOL PRN IV MAGNESIUM PROTOCOL 08/06/24 15:00 09/05/24 14:59 08/08/24 06:01 25 MLS/HR Metoprolol Succinate (TopROL XL) 12.5 mg ONCE PO 08/07/24 09:00 08/07/24 14:00 DC 08/07/24 08:40 12.5 MG Morphine Sulfate (morPHINE 2MG SYG) 2 mg [id number] PRN IVP SEVERE PAIN (7-10) 08/09/24 02:30 08/16/24 02:29 08/09/24 22:42 2 MG Morphine Sulfate (morPHINE 2MG SYG) 2 mg Q4H PRN IVP SEVERE PAIN (7-10) 08/06/24 15:00 08/09/24 02:17 DC 08/08/24 13:45 2 MG Ondansetron HCl (zoFRAN 4MG INJ) 4 mg Q6H PRN IVP NAUSEA/VOMITING 08/06/24 15:00 09/05/24 14:59 08/10/24 08:09 4 MG Potassium Chloride 100 ml @ 50 mls/hr AD PRN IV POTASSIUM PROTOCOL 08/06/24 15:00 09/05/24 14:59 Sodium Chloride 1,000 ml @ 100 mls/hr Q10H IV 08/06/24 18:00 08/06/24 20:59 DC DIAGNOSTICS / RADIOLOGY: [ ] ASSESSMENT: [Right hip intertrochanteric hip fracture, POA s/p ORIF 08/08/2024 NSTEMI, Acute coronary syndrome, POA Diabetes mellitus, type 2, POA Hyperlipidemia Hypertension CKD stage IIIB 2D echo at [facility] on 07/30/2024 showed left ventricular ejection fraction 60 65%, grade diastolic dysfunction Nuclear stress test January 03, 2022 normal stress test for vision indicated ejection fraction 64% ] PLAN: Patient will remain admitted to the PCU Left heart catheterization done 08/06/2024 Follow Cardiology input and recommendation Continue to follow orthopedic input and recommendation Continue pain medication with the adjustment as needed We will continue to monitor kidney functions, renally dose medication and avoid nephrotoxic A.c. and HS glucometer and insulin sliding scale Continue with GI and DVT prophylaxis We will repeat labs tomorrow Disposition: Remains admitted to the PCU, continue monitoring analyst, the patient underwent left heart catheterization 08/06/2024 with 95 to 99% stenosis of the mid LAD proximal to the prior placed stent, status post percutaneous intervention to the mid left anterior descending artery with placement of drug- eluting stent (3.0 x 12 mm [place]) under intravascular ultrasound guidance. Cleared by cardiology for orthopedic intervention. PATIENT UNDERWENT SUCCESSFUL OPEN FIXATION OF RIGHT HIP INTERTROCHANTERIC FRACTURE WITH A INTERLOCKING NAILING 08/09/2024. Tolerated the procedure well. Patient BP today 99/50, we will continue to hold her BP home medications. We will transfuse 1 unit of PRBC, follow CBC post transfusion. Anticoagulation discontinued. Patient noted to have leukocytosis, likely reactive, she has remained afebrile, however we will request UA, urine culture, two sets of blood cultures, chest x-ray, KUB, influenza A and B, rapid strep, SARS antigen, empiric IV antibiotics with Levaquin IV pharmacy to dose. No family members at bedside to discuss plan of care. Discharge plan discussed with case management. Total visit time spent greater than 30 minutes. CAROLINA PFEIFFER MD Aug 10, 2024 12:22
--- NOTE | 2024-08-10 13:04 | HMCIMG ---
ABD 1VW HISTORY: Leukocytosis COMPARISON: None FINDINGS: A frontal projection of the abdomen was obtained. Small bowel dilatation is seen. Postop changes are seen of right femur through the previous fracture site. Fecal material is seen in the colon. Degenerative changes of the thoracolumbar spine are noted. IMPRESSION: 1. Mild small bowel dilatation.
--- NOTE | 2024-08-10 13:05 | HMCIMG ---
CHEST 1VW HISTORY: Leukocytosis COMPARISON: None FINDINGS: A frontal projection of the chest was obtained. No acute pulmonary infiltrates is seen. The heart is borderline enlarged. Degenerative changes are seen. Prominent interstitial markings are seen. No evidence of aortic calcification is seen. IMPRESSION: 1. No acute pulmonary infiltrate is seen.
[2024-08-10 14:12] LABS: RAPID GROUP A STREP negative (NEGATIVE)
[2024-08-10 14:23] LABS: COVID19 (SARS ANTIGEN RAPID) PRESUMPTIVE NEGATIVE (NEGATIVE); INFLUENZA TYPE A Negative For Type A (NEGATIVE); INFLUENZA TYPE B Negative For Type B (NEGATIVE)
[2024-08-10] MEDS: PoTASSium chloRIDE 20MEQ/100ML 100 ML IV ONE (14:34)
[2024-08-10] MEDS: levoFLOXacin 500 MG/D5W 100 ML 100 ML IV ONE (14:35)
--- NOTE | 2024-08-10 16:33 | PN ---
SUBJECTIVE: This is an 83-year-old lady status post right hip intertrochanteric hip fracture, operative fixation. The patient is so far doing good. No acute events overnight. The patient is in the pre-ICU. She had been started on her old blood thinners. The patient was sitting in the chair when I went to see her. She was doing good. She is working with therapy. No acute events overnight. PHYSICAL EXAMINATION: GENERAL: The patient is awake, alert, oriented x 3. VITAL SIGNS: Heart rate is 89, respiratory rate is 15, blood pressure is 148/86, oxygen saturation 98% on room air. EXTREMITIES: Examination of right hip, right lower extremity, dressings are clean and dry. Compartments are soft, compressible. Toes are warm and pink. Good capillary refill is present. Motor, sensory is grossly intact. LABORATORY INVESTIGATIONS: Reviewed. ASSESSMENT AND PLAN: The patient is okay for discharge from orthopedic standpoint. Follow up in about 2 weeks. Weightbearing as tolerated, right lower extremity, walk with a walker, gait training, transfers out of bed to chair and follow up in our clinic in 2 weeks. Any problems, come back and see us immediately. Dressing changes are keep the dressing clean and dry with 4 x 4's and tape p.r.n. basis. The patient agrees with above plan. TID: [id number] RECEIPT: [id number]
[2024-08-11] VITALS (8 sets, daily range): BP systolic 118–127; BP diastolic 50–60; PULSE 69–79; RESP 16–18; TEMP 98.1–98.8; O2SAT 96–97
[2024-08-11 06:03] LABS: ADD UA MICROSCOPIC YES; APPEARANCE,URINE CLEAR (CLEAR); BILIRUBIN,URINE NEGATIVE (NEGATIVE); COLOR,URINE LIGHT-YELLOW (YELLOW); GLUCOSE, URINE (UA) NEGATIVE (NEGATIVE); KETONES,URINE NEGATIVE (NEGATIVE); LEUKOCYTE ESTERASE ,URINE NEGATIVE Leu/uL (NEGATIVE); NITRATE,URINE NEGATIVE (NEGATIVE); OCCULT BLOOD,URINE SMALL (NEGATIVE); PH,URINE 5.5 (5.0-8.0); PROTEIN,URINE NEGATIVE (NEGATIVE); UROBILINOGEN,URINE 0.2 mg/dL (0.2-1.0)
[2024-08-11 06:05] LABS: SQUAMOUS EPITHELIAL CELL,UR RARE /HPF (0-2)
[2024-08-11 06:07] LABS: HEMATOCRIT 24.3 % (36-48); MEAN CORPUSCULAR HEMOGLOBIN 30.4 pg (27.0-33.0); MEAN CORPUSCULAR HGB CONC 32.9 g/dL (32.0-36.0); MEAN CORPUSCULAR VOLUME 92.4 fL (79-99); NUCLEATED RED BLOOD CELLS 0.2 % (0.0-0.19); RED BLOOD CELL COUNT(AUTO) 2.63 MIL/uL (4.00-5.50); RED CELL DISTRIBUTION WIDTH 15.2 % (11.0-15.5); WHITE BLOOD COUNT (AUTO) 13.1 K/uL (4.8-10.8)
[2024-08-11 06:30] LABS: CREATININE 1.1 mg/dL (0.5-1.0); POTASSIUM 4.1 mmol/L (3.5-5.1)
[2024-08-11] MEDS: LEVOFLOXACIN 250 MG/D5W 50ML IVPB SCH (11:51)
--- NOTE | 2024-08-11 13:36 | PN ---
[facility] CARDIOLOGY PROGRESS NOTE Date Patient Seen: Aug 11, 2024 Time of Visit: 13:27 Interval History: recovering well. sat up in the chair this morning. felt lightheaded. no chest pain. continues to have epigastric abdominal pain but it is improving. Hgb 8 today. Physical Examination: GENERAL: [No acute distress.] HEAD: [Normal with no signs of head trauma.] EYES: EOMI, conjunctiva and sclera normal.] ENT: [Hearing grossly intact, normal oropharynx.] NECK: [Supple without JVD.] LUNGS: [Clear breath sounds bilaterally. No wheezes, or rhonchi.] HEART: [Normal rate and rhythm. Normal S1 and S2 without mumurs, gallop or rub.] VASC: [Peripheral pulses +2 bilaterally.] ABD: [soft, nontender.] EXT: [No clubbing, cyanosis or edema.] SKIN: [No rashes or lesions noted.] NEURO: [Awake, alert, and oriented x3. No focal sensory or strength deficits noted.] Laboratory: [ ] Hematology Labs: Test 08/11/24 06:01 08/10/24 06:32 Range/Units White Blood Count 13.1 H 4.8-10.8 K/uL Red Blood Count 2.63 L 4.00-5.50 MIL/uL Hemoglobin 8.0 L 12.0-16.0 g/dL Hematocrit 24.3 L 36-48 % Mean Corpuscular Volume 92.4 79-99 fL Mean Corpuscular Hemoglobin 30.4 27.0-33.0 pg Mean Corpuscular Hemoglobin Concent 32.9 32.0-36.0 g/dL Red Cell Distribution Width 15.2 11.0-15.5 % Platelet Count 196 130-400 K/uL Mean Platelet Volume 10.0 7.5-10.5 fL Nucleated Red Blood Cells 0.2 H 0.0-0.19 % Immature Granulocyte % (Auto) 0.7 0-1 % Neutrophils (%) (Auto) 59.1 40.0-77.0 % Lymphocytes (%) (Auto) 30.4 21.0-51.0 % Monocytes (%) (Auto) 6.8 3.0-13.0 % Eosinophils (%) (Auto) 2.7 0.0-8.0 % Basophils (%) (Auto) 0.3 0.0-5.0 % Neutrophils # (Auto) 9.9 H 1.8-7.7 K/uL Lymphocytes # (Auto) 5.1 H 1.0-4.8 K/uL Monocytes # (Auto) 1.2 H 0.1-1.0 K/uL Eosinophils # (Auto) 0.46 0.00-0.70 K/uL Basophils # (Auto) 0.05 0.00-0.20 K/uL Absolute Immature Granulocyte (auto 0.11 0-1 K/uL Chemistry Labs: Test 08/11/24 11:36 08/11/24 06:01 08/10/24 06:32 Range/Units Whole Blood Glucose 217 H 70-110 MG/DL Sodium Level 136 136-145 mmol/L Potassium Level 4.1 3.5-5.1 mmol/L Chloride Level 101 101-111 mmol/L Carbon Dioxide Level 31 21-32 mmol/L Blood Urea Nitrogen 24 H 7-18 mg/dL Creatinine 1.1 H 0.5-1.0 mg/dL Glomerular Filtration Rate Calc 50 >90 mL/min Random Glucose 203 #H 70-105 mg/dL Total Calcium 8.4 L 8.5-10.1 mg/dL Magnesium Level 1.80 1.80-2.40 mg/dL Total Bilirubin 0.5 0.2-1.0 mg/dL Aspartate Amino Transf (AST/SGOT) 25 10-37 U/L Alanine Aminotransferase (ALT/SGPT) 18 12-78 U/L Alkaline Phosphatase 49 L 50-136 U/L Total Protein 5.9 L 6.0-8.3 g/dL Albumin 2.3 L 3.5-5.0 g/dL Coagulation Labs: Test 08/10/24 06:32 08/09/24 23:47 Range/Units Activated Partial Thromboplast Time 116.7 #*H 26.3-35.5 SEC Prothrombin Time 10.5 9.6-11.6 SEC Prothromb Time International Ratio 0.97 0.85-1.15 Diagnostics / Radiology: reviewed Impression and Plan: 1. Right hip intertrochanteric fracture status post accidental fall 08/04/2024 s/p interlocking nailing by Dr Garcia: POD #3 2. Type 2 OR 2/2 #1 3. CAD s/p remote PTCA and stenting of the mid LAD with a 2.5 x 12 [employer]ience Xpedition drug-eluting stent 07/30/2014 and PTCA and stenting of the mid LAD proximal to her prior stent with a 3.0 x 12 mm [employer] [place] drug- eluting stent 08/06/2024 4. Acute blood loss anemia on chronic anemia 5. Normal LV systolic function with LVEF of 60-65%, mild concentric LVH, grade 2 diastolic dysfunction by 2D echocardiogram 07/29/2024: Repeat 2D echo 08/05 demonstrated an LVEF of 60-65%: - Mrs Leong is recovering well. BP improving but noted orthostasis this AM. Will hold off resuming BB for 24 hours more. would likely start at low dose and assess response. -continue ASA, plavix x 1 year -goal Hgb 8-10. ILYA GALLARDO MD Aug 11, 2024 13:36
[2024-08-11] MEDS: metOPROLol sucCINATE 25 MG TAB.SR.24H PO SCH (14:08)
--- NOTE | 2024-08-11 15:23 | PN ---
[facility] PROGRESS NOTE Date of Service: Aug 11, 2024 Time of Service: 15:22 SUBJECTIVE: The patient has been seen and examined during my rounding, no acute events overnight, remains comfortably in bed, stable, BP 100/45, afebrile, heart rate controlled at 64, saturating 98% on 2 L via nasal cannula. Currently getting good pain control with current medical management, denies dizziness, no headache, no chest pain, no shortness shortness for breath, no nausea, no vomiting, no abdominal discomfort, no diarrhea, no constipation, no melena, no hematochezia, no hematemesis, no hematuria, no dysuria. Patient had left heart catheterization yesterday, tolerated well. 95 to 99% stenosis of the mid LAD proximal to the prior placed stent, status post percutaneous intervention to the mid left anterior descending artery with placement of drug-eluting stent (3.0 x 12 mm [place] Watson) under intravascular ultrasound guidance. 08/08 the patient is seen and examined earlier this morning during my rounding, no acute events overnight, patient NPO, awaiting to be taken to the operating room today. Remains hemodynamically stable, afebrile, saturating normal on room air, getting good pain control with current medical management, no dizziness, no headache, no chest pain, shortness shortness for breath, no nausea, vomiting, no abdominal discomfort. 08/09 the patient has been seen and examined earlier this morning during my rounding, no acute events overnight, comfortably in bed, hemodynamically stable, BP 121/65, afebrile, saturating 100% on 2 L nasal cannula. Heart rate controlled at 75. She denied chest pain, shortness shortness for breath, no nausea, no vomiting, no abdominal discomfort, no family members at bedside. Patient underwent right hip ORIF yesterday, tolerated procedure well. 08/10 the patient has been seen and examined earlier this morning during my r ounding, no acute events overnight, during my visit the patient is awake, following commands, has not had a bowel movement for the last few days, however she is passing gas. BP 99/50, heart rate controlled at 63, afebrile, saturating normal on room air. She denies dizziness, no headache, no blurry vision, no chest pain, shortness shortness for breath, no nausea, no vomiting, no d iscomfort, no family members at bedside during my visit. 08/11 the patient has been seen and examined today during my rounding, no acute events overnight, remains hemodynamically stable. Per my discussion with the nurse that is taking care of the patient, patient had a good bowel movement earlier this morning, no chest pain, no shortness a breath, no nausea, no vomiting. REVIEW OF SYSTEMS CONSTITUTIONAL: Denies fevers, chills, or night sweats. No unintentional weight loss reported. NEUROLOGICAL: Denies headache, amaurosis fugax, motor weakness, sensory deficit, vertigo/spinning sensation, gait abnormalities, or tremors. ENT: No hearing loss, otalgia, otorrhea, rhinitis, rhinorrhea, hoarseness, or sore throat. CARDIOVASCULAR: Denies any exertional angina, dyspnea on exertion, orthopnea, paroxysmal nocturnal dyspnea, palpitations, life-threatening arrhythmias, claudication. PULMONARY: Denies any shortness of breath, cough, phlegm/sputum, hemoptysis, pleuritic chest pain. SLEEP: Denies morning headaches, daytime somnolence or napping. Denies difficulty falling asleep, staying asleep, waking from sleep. Denies knowledge of snoring. GASTROINTESTINAL: Denies any type of dysphagia to either liquids or solids. Denies nausea, vomiting, pyrosis, early satiety, abdominal pain, diarrhea, constipation, or changes in stool consistency or caliber. Denies coffee-ground emesis, hematemesis, hematochezia, or melanotic stools. GENITOURINARY: Denies frequency, urgency, nocturia, hematuria or incontinence (Storage/Irritative symptoms.) Low urinary stream, straining to void, urinary intermittency or hesitancy, splitting of the voiding stream, terminal dribbling. ENDOCRINOLOGIC: Denies polyuria, polydipsia, polyphagia or heat/cold intolerances. HEMATOLOGIC: Denies thrombophilia/previous clots, or coagulopathy/bleeding disorders. ONCOLOGIC: Denies personal history of malignancy. DERMATOLOGIC: Denies rashes or pruritus. PSYCHIATRIC: Denies any suicidal or homicidal ideation. Denies hallucinations. PHYSICAL EXAM GENERAL APPEARANCE: The patient is awake, alert, and oriented, in no acute cardiopulmonary distress. NEUROLOGICAL: Cranial nerves II-XII grossly intact. Motor is 5/5 in bilateral upper and lower extremities proximal to distal. No sensory deficits. HEENT: Face is symmetric. Pupils are equal and reactive. Extraocular movements are intact. NECK: Supple. No JVD. No thyromegaly. No submental, submandibular, pre- /postauricular, occipital or supraclavicular lymphadenopathy. CHEST: Normal chest expansion. No Telemetry. LUNGS: Absence of any rales, rhonchi or any wheezing. CARDIOVASCULAR: Regular. S1 and S2 normal. No appreciable rubs, murmurs or gallops. ABDOMEN: Soft, nontender, and nondistended. There is no rebound, voluntary guarding, or rigidity. : Deferred. No [place]. EXTREMITIES: right hip pain SKIN: No skin breakdown. Vital Signs (last 8hr) Date Time Temp Pulse Resp B/P (MAP) Pulse Ox O2 Delivery O2 Flow Rate FiO2 08/11/24 11:49 98.1 70 16 127/60 100 Room Air 08/11/24 09:39 97 Room Air* 0 21 08/11/24 07:51 98.2 69 16 118/55 97 Room Air LABS: Laboratory: Test 08/11/24 11:36 08/11/24 06:01 08/11/24 05:40 08/10/24 13:45 Range/Units Whole Blood Glucose 217 H 70-110 MG/DL White Blood Count 13.1 H 4.8-10.8 K/uL Red Blood Count 2.63 L 4.00-5.50 MIL/uL Hemoglobin 8.0 L 12.0-16.0 g/dL Hematocrit 24.3 L 36-48 % Mean Corpuscular Volume 92.4 79-99 fL Mean Corpuscular Hemoglobin 30.4 27.0-33.0 pg Mean Corpuscular Hemoglobin Concent 32.9 32.0-36.0 g/dL Red Cell Distribution Width 15.2 11.0-15.5 % Platelet Count 196 130-400 K/uL Mean Platelet Volume 10.0 7.5-10.5 fL Nucleated Red Blood Cells 0.2 H 0.0-0.19 % Sodium Level 136 136-145 mmol/L Potassium Level 4.1 3.5-5.1 mmol/L Chloride Level 101 101-111 mmol/L Carbon Dioxide Level 31 21-32 mmol/L Blood Urea Nitrogen 24 H 7-18 mg/dL Creatinine 1.1 H 0.5-1.0 mg/dL Glomerular Filtration Rate Calc 50 >90 mL/min Random Glucose 203 #H 70-105 mg/dL Total Calcium 8.4 L 8.5-10.1 mg/dL Urine Color LIGHT-YELLOW YELLOW Urine Appearance CLEAR CLEAR Urine pH 5.5 5.0-8.0 Urine Specific [place] 1.014 1.001-1.031 Urine Protein NEGATIVE NEGATIVE mg/dL Urine Glucose (UA) NEGATIVE NEGATIVE mg/dL Urine Ketones NEGATIVE NEGATIVE mg/dL Urine Occult Blood SMALL H NEGATIVE Urine Nitrate NEGATIVE NEGATIVE Urine Bilirubin NEGATIVE NEGATIVE mg/dL Urine Urobilinogen 0.2 0.2-1.0 mg/dL Urine Leukocyte Esterase NEGATIVE NEGATIVE Fabricio/uL Urine RBC 2-5 H 0-1 /HPF Urine WBC 2-5 H 0-1 /HPF Urine Squamous Epithelial Cells RARE 0-2 /HPF Urine Bacteria None None Seen /HPF Influenza Type A Antigen Negative For Type A NEGATIVE Influenza Type B Antigen Negative For Type B NEGATIVE SARS-CoV-2 Antigen (Rapid) PRESUMPTIVE NEGATIVE NEGATIVE Group A Streptococcus Rapid negative NEGATIVE Test 08/10/24 06:32 08/09/24 23:47 Range/Units Immature Granulocyte % (Auto) 0.7 0-1 % Neutrophils (%) (Auto) 59.1 40.0-77.0 % Lymphocytes (%) (Auto) 30.4 21.0-51.0 % Monocytes (%) (Auto) 6.8 3.0-13.0 % Eosinophils (%) (Auto) 2.7 0.0-8.0 % Basophils (%) (Auto) 0.3 0.0-5.0 % Neutrophils # (Auto) 9.9 H 1.8-7.7 K/uL Lymphocytes # (Auto) 5.1 H 1.0-4.8 K/uL Monocytes # (Auto) 1.2 H 0.1-1.0 K/uL Eosinophils # (Auto) 0.46 0.00-0.70 K/uL Basophils # (Auto) 0.05 0.00-0.20 K/uL Absolute Immature Granulocyte (auto 0.11 0-1 K/uL Activated Partial Thromboplast Time 116.7 #*H 26.3-35.5 SEC Magnesium Level 1.80 1.80-2.40 mg/dL Total Bilirubin 0.5 0.2-1.0 mg/dL Aspartate Amino Transf (AST/SGOT) 25 10-37 U/L Alanine Aminotransferase (ALT/SGPT) 18 12-78 U/L Alkaline Phosphatase 49 L 50-136 U/L Total Protein 5.9 L 6.0-8.3 g/dL Albumin 2.3 L 3.5-5.0 g/dL Prothrombin Time 10.5 9.6-11.6 SEC Prothromb Time International Ratio 0.97 0.85-1.15 Current Medications Medications (Trade) Dose Ordered Sig/Kaylan Route PRN Reason Start Time Stop Time Status Last Admin Dose Admin Acetaminophen (TYLenol 325MG TAB) 650 mg Q4H PRN PO TEMPERATURE GREATER THAN 101.5 08/06/24 15:00 09/05/24 14:59 Acetaminophen (TYLenol 325MG TAB) 650 mg Q6H PRN PO MILD PAIN (1-3) 08/06/24 15:00 09/05/24 14:59 08/07/24 11:46 650 MG Acetaminophen/ Hydrocodone Bitart (NORco 5/325MG) 1 tab Q4H PRN PO MODERATE PAIN (4-6) 08/09/24 02:30 08/14/24 02:29 08/10/24 15:27 1 TAB Aspirin (Aspirin 81mg Ec Tab) 81 mg DAILY PO 08/07/24 09:00 09/06/24 08:59 08/11/24 08:25 81 MG Clindamycin HCl/ Dextrose 50 ml @ 100 mls/hr Q8H IV 08/09/24 02:00 08/09/24 02:35 DC 08/09/24 02:21 100 MLS/HR Clopidogrel Bisulfate (plaVIX 75MG) 75 mg DAILY PO 08/07/24 09:00 09/06/24 08:59 08/11/24 08:25 75 MG Dextrose (D50w) 50 ml AD PRN IV HYPOGLYCEMIA PROTOCOL 08/06/24 15:00 09/05/24 14:59 Famotidine (Pepcid 20mg Tab) 20 mg Q24H PO 08/08/24 12:00 09/07/24 11:59 08/11/24 11:51 20 MG Glucagon (Glucagon 1mg Kit) 1 mg AD PRN IM HYPOGLYCEMIA PROTOCOL 08/06/24 15:00 09/05/24 14:59 Heparin Sodium (Porcine) (HEParin 5,000 UNIT VIAL) *calculation based on ACTUAL B... AD PRN IV HEPARIN PROTOCOL 08/09/24 09:30 08/10/24 07:45 DC Heparin Sodium/ Dextrose 250 ml @ 0 mls/hr Q6H IV 08/09/24 09:30 08/10/24 14:55 DC 08/09/24 09:29 17 MLS/HR Insulin Human Regular (humuLIN R 100 UNIT/ML 3ML) INSULIN SLIDING SCAL... ACHS SQ 08/06/24 16:30 09/05/24 16:29 08/11/24 11:49 3 UNIT Iron Sucrose (VenoFER) 100 mg DAILY IV 08/08/24 12:00 08/10/24 09:01 DC 08/10/24 08:18 100 MG Levofloxacin/ Dextrose 50 ml @ 100 mls/hr Q24H IVPB 08/11/24 13:00 08/21/24 12:59 08/11/24 11:51 100 MLS/HR Magnesium Sulfate 50 ml @ 0 mls/hr PROTOCOL IV 08/10/24 14:00 09/09/24 13:59 Magnesium Sulfate 50 ml @ 0 mls/hr PROTOCOL PRN IV MAGNESIUM PROTOCOL 08/06/24 15:00 09/05/24 14:59 08/08/24 06:01 25 MLS/HR Metoprolol Succinate (TopROL XL) 12.5 mg DAILY PO 08/11/24 14:00 09/10/24 13:59 08/11/24 14:08 12.5 MG Metoprolol Succinate (TopROL XL) 12.5 mg ONCE PO 08/07/24 09:00 08/07/24 14:00 DC 08/07/24 08:40 12.5 MG Morphine Sulfate (morPHINE 2MG SYG) 2 mg [id number] PRN IVP SEVERE PAIN (7-10) 08/09/24 02:30 08/16/24 02:29 08/09/24 22:42 2 MG Morphine Sulfate (morPHINE 2MG SYG) 2 mg Q4H PRN IVP SEVERE PAIN (7-10) 08/06/24 15:00 08/09/24 02:17 DC 08/08/24 13:45 2 MG Ondansetron HCl (zoFRAN 4MG INJ) 4 mg Q6H PRN IVP NAUSEA/VOMITING 08/06/24 15:00 09/05/24 14:59 08/10/24 08:09 4 MG Potassium Chloride 100 ml @ 50 mls/hr AD PRN IV POTASSIUM PROTOCOL 08/06/24 15:00 09/05/24 14:59 Sodium Chloride 1,000 ml @ 100 mls/hr Q10H IV 08/06/24 18:00 08/06/24 20:59 DC DIAGNOSTICS / RADIOLOGY: [ ] ASSESSMENT: [Right hip intertrochanteric hip fracture, POA s/p ORIF 08/08/2024 NSTEMI, Acute coronary syndrome, POA Diabetes mellitus, type 2, POA Hyperlipidemia Hypertension CKD stage IIIB 2D echo at [facility] on 07/30/2024 showed left ventricular ejection fraction 60 65%, grade diastolic dysfunction Nuclear stress test January 03, 2022 normal stress test for vision indicated ejection fraction 64% ] PLAN: Patient will remain admitted to the PCU Left heart catheterization done 08/06/2024 Follow Cardiology input and recommendation Continue to follow orthopedic input and recommendation Continue pain medication with the adjustment as needed We will continue to monitor kidney functions, renally dose medication and avoid nephrotoxic A.c. and HS glucometer and insulin sliding scale Continue with GI and DVT prophylaxis We will repeat labs tomorrow Disposition: Remains admitted to the PCU, continue accounts manager, the patient underwent left heart catheterization 08/06/2024 with 95 to 99% stenosis of the mid LAD proximal to the prior placed stent, status post percutaneous intervention to the mid left anterior descending artery with placement of drug- eluting stent (3.0 x 12 mm [place] Watson) under intravascular ultrasound [facility]. Cleared by cardiology for orthopedic intervention. PATIENT UNDERWENT SUCCESSFUL OPEN FIXATION OF RIGHT HIP INTERTROCHANTERIC FRACTURE WITH A INTERLOCKING NAILING 08/09/2024. Tolerated the procedure well. Patient remains hemodynamically stable. Leukocytosis trending down. Septic workup so far negative. Continue empiric IV antibiotics, follow a.m. labs. Anticipate discharge to nursing home facility in the next 24 hours. Total visit time spent greater than 30 minutes. CAROLINA PFEIFFER MD Aug 11, 2024 15:23
[2024-08-12 03:52] VITALS: BP 121/49; PULSE 70; RESP 16; TEMP 98.3
[2024-08-12 04:09] LABS: HEMATOCRIT 25.9 % (36-48); MEAN CORPUSCULAR HEMOGLOBIN 31.5 pg (27.0-33.0); MEAN CORPUSCULAR HGB CONC 32.8 g/dL (32.0-36.0); MEAN CORPUSCULAR VOLUME 95.9 fL (79-99); RED BLOOD CELL COUNT(AUTO) 2.7 MIL/uL (4.00-5.50); RED CELL DISTRIBUTION WIDTH 14.5 % (11.0-15.5); WHITE BLOOD COUNT (AUTO) 12.7 K/uL (4.8-10.8)
[2024-08-12 04:29] LABS: ALBUMIN 2.3 g/dL (3.5-5.0); BILIRUBIN,TOTAL 0.7 mg/dL (0.2-1.0); CREATININE 1.1 mg/dL (0.5-1.0); MAGNESIUM 1.7 mg/dL (1.80-2.40); POTASSIUM 4.1 mmol/L (3.5-5.1); TOTAL PROTEIN, SERUM 6.2 g/dL (6.0-8.3)
[2024-08-12] MEDS: MAGNESIUM 2GM PREMIX 50ML 50 ML IV SCH (05:38)
[2024-08-12 08:00] VITALS: BP 134/74; PULSE 71; RESP 20; TEMP 98.2; O2SAT 96
--- NOTE | 2024-08-12 12:01 | PN ---
[facility] CARDIOLOGY PROGRESS NOTE Date Patient Seen: Aug 12, 2024 Time of Visit: 11:57 Interval History: doing better this morning, sitting up in chair. Has received Toprol 12.5 mg QD (previously held all meds due to orthostasis and supine borderline BP) no chest pain. Physical Examination: GENERAL: [No acute distress.] HEAD: [Normal with no signs of head trauma.] EYES: EOMI, conjunctiva and sclera normal.] ENT: [Hearing grossly intact, normal oropharynx.] NECK: [Supple without JVD.] LUNGS: [Clear breath sounds bilaterally. No wheezes, or rhonchi.] HEART: [Normal rate and rhythm. Normal S1 and S2 without mumurs, gallop or rub.] VASC: [Peripheral pulses +2 bilaterally.] ABD: [soft, nontender.] EXT: [No clubbing, cyanosis or edema.] SKIN: [No rashes or lesions noted.] NEURO: [Awake, alert, and oriented x3. No focal sensory or strength deficits noted.] Laboratory: [ ] Hematology Labs: Test 08/12/24 03:15 Range/Units White Blood Count 12.7 H 4.8-10.8 K/uL Red Blood Count 2.70 L 4.00-5.50 MIL/uL Hemoglobin 8.5 L 12.0-16.0 g/dL Hematocrit 25.9 L 36-48 % Mean Corpuscular Volume 95.9 79-99 fL Mean Corpuscular Hemoglobin 31.5 27.0-33.0 pg Mean Corpuscular Hemoglobin Concent 32.8 32.0-36.0 g/dL Red Cell Distribution Width 14.5 11.0-15.5 % Platelet Count 236 130-400 K/uL Mean Platelet Volume 10.7 H 7.5-10.5 fL Nucleated Red Blood Cells 0.0 0.0-0.19 % Chemistry Labs: Test 08/12/24 05:10 08/12/24 03:15 Range/Units Whole Blood Glucose 146 H 70-110 MG/DL Sodium Level 140 136-145 mmol/L Potassium Level 4.1 3.5-5.1 mmol/L Chloride Level 103 101-111 mmol/L Carbon Dioxide Level 34 H 21-32 mmol/L Blood Urea Nitrogen 22 H 7-18 mg/dL Creatinine 1.1 H 0.5-1.0 mg/dL Glomerular Filtration Rate Calc 50 >90 mL/min Random Glucose 136 H 70-105 mg/dL Total Calcium 8.9 8.5-10.1 mg/dL Magnesium Level 1.70 L 1.80-2.40 mg/dL Total Bilirubin 0.7 0.2-1.0 mg/dL Aspartate Amino Transf (AST/SGOT) 24 10-37 U/L Alanine Aminotransferase (ALT/SGPT) 18 12-78 U/L Alkaline Phosphatase 55 50-136 U/L Total Protein 6.2 6.0-8.3 g/dL Albumin 2.3 L 3.5-5.0 g/dL Diagnostics / Radiology: reviewed Impression and Plan: 1. Right hip intertrochanteric fracture status post accidental fall 08/04/2024 s/p interlocking nailing by Dr Garcia: POD #4 2. Type 2 NM 2/2 #1 3. CAD s/p remote PTCA and stenting of the mid LAD with a 2.5 x 12 [employer]ience Xpedition drug-eluting stent 07/30/2014 and PTCA and stenting of the mid LAD proximal to her prior stent with a 3.0 x 12 mm [employer] Oziel [place] drug- eluting stent 08/06/2024 4. Acute blood loss anemia on chronic anemia 5. Normal LV systolic function with LVEF of 60-65%, mild concentric LVH, grade 2 diastolic dysfunction by 2D echocardiogram 07/29/2024: Repeat 2D echo 08/05 demonstrated an LVEF of 60-65%: - Mrs Leong is recovering well. BP improving. resumed BB. Started low with Toprol 12. 5 mg and has tolerated medication. Will not further uptitrate at present and re-evaluate as outpatient to minimize orthostasis-related falls that wuld hinder her hip fracture recovery. -continue ASA, plavix x 1 year -goal Hgb 8-10. -ok to transfer to rehab. Suggest removing szymanski and bladder scan prior to discharge. -She will need f/u with Dr Abdul in 1 month ILYA GALLARDO MD Aug 12, 2024 12:01
[2024-08-12 12:34] VITALS: BP 109/59; PULSE 68; RESP 16; TEMP 99
[2024-08-12] MEDS ORDERED: MAGNESIUM 2GM PREMIX 50ML 50 ML IV SCH (14:00)
[2024-08-12 16:27] VITALS: BP 138/53; PULSE 71; RESP 16; TEMP 98.7
[2024-08-12 19:51] VITALS: BP 136/84; PULSE 73; RESP 18; TEMP 98.8
[2024-08-12 20:00] VITALS: O2SAT 97
--- NOTE | 2024-08-24 14:54 | DS ---
Discharge Summary Hospital Course Summary: This is an 83-year-old female who was transferred from [facility] for further cardiac evaluation, she is scheduled for left heart catheterization with [facility]. Apparently she initially was admitted at [facility] after fall from home where she sustained injury to the right hip. Patient then complained of right hip pain swelling and deformity and inability to bear weight to the right lower extremity. She was brought to [facility] and diagnosed with right hip intertrochanteric hip fracture. Patient lives in [place]. She was sent to [facility] for preoperative cardiac evaluation and clearance. Patient has history of coronary artery disease status post stenting in the mid LAD with a 2.5 x 12 see hence Xpedition drug-eluting stent in 2013. Last nuclear stress test was in 2021 with no evidence of ischemia or infarct with ejection fraction of 64%. She was evaluated at [facility] as she was having chest pain with elevated troponins. On admission to [facility] she had elevated troponins that was trended from 490, 456 and 417 with12 lead EKG demonstrates no acute findings. She did have history of angina type symptoms six days prior to admission to [facility]. Where she described chest pain as substernal pain that radiates to the left arm up to the level of the elbow and is relieved by nitroglycerin sublingually. 08/08 the patient is seen and examined earlier this morning during my rounding, no acute events overnight, patient NPO, awaiting to be taken to the operating room today. Remains hemodynamically stable, afebrile, saturating normal on room air, getting good pain control with current medical management, no dizziness, no headache, no chest pain, shortness shortness for breath, no nausea, vomiting, no abdominal discomfort. 08/09 the patient has been seen and examined earlier this morning during my rounding, no acute events overnight, comfortably in bed, hemodynamically stable, BP 121/65, afebrile, saturating 100% on 2 L nasal cannula. Heart rate controlled at 75. She denied chest pain, shortness shortness for breath, no nausea, no vomiting, no abdominal discomfort, no family members at bedside. Patient underwent right hip ORIF yesterday, tolerated procedure well. 08/10 the patient has been seen and examined earlier this morning during my rounding, no acute events overnight, during my visit the patient is awake, following commands, has not had a bowel movement for the last few days, however she is passing gas. BP 99/50, heart rate controlled at 63, afebrile, saturating normal on room air. She denies dizziness, no headache, no blurry vision, no chest pain, shortness shortness for breath, no nausea, no vomiting, no discomfort, no family members at bedside during my visit. 08/11 the patient has been seen and examined today during my rounding, no acute events overnight, remains hemodynamically stable. Per my discussion with the nurse that is taking care of the patient, patient had a good bowel movement earlier this morning, no chest pain, no shortness a breath, no nausea, no vomiting. Remains admitted to the PCU, continue conveyor monitor, the patient underwent left heart catheterization 08/06/2024 with 95 to 99% stenosis of the mid LAD proximal to the prior placed stent, status post percutaneous intervention to the mid left anterior descending artery with placement of drug- eluting stent (3.0 x 12 mm Oziel Arthur) under intravascular ultrasound guidance. Cleared by cardiology for orthopedic intervention. PATIENT UNDERWENT SUCCESSFUL OPEN FIXATION OF RIGHT HIP INTERTROCHANTERIC FRACTURE WITH A INTERLOCKING NAILING 08/09/2024. Tolerated the procedure well. Patient remains hemodynamically stable. Leukocytosis trending down. Septic workup so far negative. Continue empiric IV antibiotics, follow a.m. labs. Patient accepted to SNF for continuation of medical caregivers homecare(s): orthopedic Procedure(s): OPERATIVE REPORT Name: AMARIS LOPEZ Acct: [id number] MR: [id number] : 1940 Admit Date: 08/06/24 CRISTINA HENSON MD [address] [id number] DATE OF PROCEDURE: 08/08/2024 PREOPERATIVE DIAGNOSIS: Right hip intertrochanteric hip fracture. POSTOPERATIVE DIAGNOSIS: Right hip intertrochanteric hip fracture. PROCEDURE PERFORMED: Operative fixation of right hip intertrochanteric hip fracture with interlocking nailing. INTRAVENOUS FLUIDS: As per anesthesia. ESTIMATED BLOOD LOSS: 300 mL. COMPLICATIONS: None. SPECIMENS SENT: None. IMPLANTS USED: [place] gamma nail of dimensions 10 mm x 170 mm x 125-degree neck angle along with 1 proximal lag screw and 1 distal interlocking screw. ANESTHESIA: General anesthesia plus fascia iliaca block. ANTIBIOTICS USED: Clindamycin 900 mg. INDICATIONS FOR THE PROCEDURE: This is an 83-year-old lady who was initially seen in [facility] for a right hip intertrochanteric hip fracture. The patient was then subsequently transferred to [facility] because of her cardiac issues and she underwent some drug-eluting stents. The patient has been put on some blood thinners because of the stents. We discussed in detail with the patient and family regarding her condition and told the treatment options available and the risks and benefits. All questions and concerns were answered in detail. The patient and family verbalized understanding and preferred operative management, which is the standard of care. Informed consent was obtained. 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 So we started our procedure by identifying the patient in the preoperative holding area and the correct patient, correct procedure site, correct extremity and the correct plan was confirmed and marked. DESCRIPTION OF PROCEDURE: The patient was taken to the operating room and placed in the supine position, underwent general anesthesia by the anesthetic team. After that, the patient also underwent fascia iliaca block. The patient was then positioned onto the [place] fracture table with the right lower extremity in traction and adduction and internal rotation on the left lower extremity in extension. The C-arm shots were satisfactory. Then, the right lower extremity was then prepped and draped in a sterile fashion. Repeat timeout was done, identifying the correct patient, correct procedure site, correct extremity and the correct plan. Then subsequently, we started our procedure by bringing in guidewire, placed it at the tip of the greater trochanter on the AP and lateral view and along the femoral shaft. We made a skin incision about 3 cm along the guidewire. Skin and subcutaneous tissue were incised. Blunt dissection was carried out and we reamed over the guidewire. After that, we inserted [place] gamma nail of the above-mentioned dimensions. The nail position was in satisfactory alignment on both AP and lateral view. Then, using the jig provided, we put in 1 proximal lag screw. The tip apex distance was less than 25 mm. Then, after confirming adequate reduction and rotation of the leg, we put in another distal interlocking screw through the jig provided. The patient tolerated the procedure well, no complication was encountered. All the wounds were thoroughly washed and then closed in sequential layers with 0 Vicryl, 2-0 Vicryls and sherley. Soft tissue dressing was applied. TID: [id number] RECEIPT: [id number] Electronically Signed by: CRISTINA HENSON MD08/15/24 0731 Electronically Co-Signed by: Assessment/Plan: FINAL DIAGNOSIS Right hip intertrochanteric hip fracture, POA s/p ORIF 08/08/2024 NSTEMI, Acute coronary syndrome, POA Diabetes mellitus, type 2, POA Hyperlipidemia Hypertension CKD stage IIIB 2D echo at [place] on 07/30/2024 showed left ventricular ejection fraction 60 65%, grade diastolic dysfunction Nuclear stress test January 03, 2022 normal stress test for vision indicated ejection fraction 64% Discharge Instructions: Patient accepted to SNF for continuation of medical care. Home Medications: Reported Medications Montelukast Sodium (Montelukast Sodium) 10 Mg Tablet, 10 MG PO HS, TAB 08/06/24 Isosorbide Mononitrate (Isosorbide Mononitrate ER) 60 Mg Tab.er.24h, 60 MG PO DAILY, TAB 08/06/24 Metoprolol Succinate (Metoprolol Succinate) 50 Mg Tab.er.24h, 50 MG PO DAILY, TAB 08/06/24 Loratadine (Loratadine) 10 Mg Tablet, 10 MG PO DAILY, TAB 08/06/24 Omeprazole (Omeprazole) 20 Mg Capsule.dr, 20 MG PO DAILY, CAP 08/06/24 Atorvastatin Calcium (Atorvastatin Calcium) 40 Mg Tablet, 40 MG PO HS, TAB 08/06/24 Lisinopril (Lisinopril) 10 Mg Tablet, 10 MG PO DAILY, TAB 08/06/24 Gabapentin (Gabapentin) 100 Mg Capsule, 300 MG PO TID, CAP 08/06/24 Time spent arranging discharge: 31-60 minutes CAROLINA PFEIFFER MD Aug 24, 2024 14:54
== END 2024-08-12 21:15 | DRG 480 ==
LOC: 2DH 12:36
PROVIDERS: ADMIT Internal Medicine; ATTEND Internal Medicine
PROC: 027034Z Dilation of Coronary Artery, One Artery with Drug-eluting Intraluminal Device, Percutaneous Approach (ICD-10-PCS; principal; 2024-08-06)
PROC: 0QS604Z Reposition Right Upper Femur with Internal Fixation Device, Open Approach (ICD-10-PCS; 2024-08-06)
PROC: 4A023N7 Measurement of Cardiac Sampling and Pressure, Left Heart, Percutaneous Approach (ICD-10-PCS; 2024-08-06)
PROC: B2111ZZ Fluoroscopy of Multiple Coronary Arteries using Low Osmolar Contrast (ICD-10-PCS; 2024-08-06)
PROC: B240ZZ3 Ultrasonography of Single Coronary Artery, Intravascular (ICD-10-PCS; 2024-08-06)
PROC: 30233N1 Transfusion of Nonautologous Red Blood Cells into Peripheral Vein, Percutaneous Approach (ICD-10-PCS; 2024-08-08)
DX: S72.141A Displaced intertrochanteric fracture of right femur, initial encounter for closed fracture (principal); I21.A1 Myocardial infarction type 2; I13.0 Hypertensive heart and chronic kidney disease with heart failure and stage 1 through stage 4 chronic kidney disease, or unspecified chronic kidney disease; D62 Acute posthemorrhagic anemia; I25.10 Atherosclerotic heart disease of native coronary artery without angina pectoris; Z20.822 Contact with and (suspected) exposure to COVID-19; N18.32 Chronic kidney disease, stage 3b; X58.XXXA Exposure to other specified factors, initial encounter; E11.42 Type 2 diabetes mellitus with diabetic polyneuropathy; E11.22 Type 2 diabetes mellitus with diabetic chronic kidney disease; G31.9 Degenerative disease of nervous system, unspecified; E11.51 Type 2 diabetes mellitus with diabetic peripheral angiopathy without gangrene; I50.9 Heart failure, unspecified; E78.5 Hyperlipidemia, unspecified; Z95.5 Presence of coronary angioplasty implant and graft; Y93.89 Activity, other specified; Z90.710 Acquired absence of both cervix and uterus; Y92.89 Other specified places as the place of occurrence of the external cause; Y99.8 Other external cause status; Z90.49 Acquired absence of other specified parts of digestive tract
CPT/HCPCS: 36415; 36430; 71045; 73503; 74018; 80048; 80053; 81001; 82607; 82728; 82746; 82948; 83540; 83550; 83735; 85025; 85027; 85347; 85610; 85730; 86850; 86900; 86901; 86923; 87040; 87086; 87426; 87804; 87880; 92978; 93005; 93308; 93356; 93458; 99156; 99157; C1760; C1769; C1887; C1894; C9600; G0378; J1327; J1644; J1756; J1815; J1956; J2250; J2270; J2371; J2405; J2704; J2795; J3010; J3475; J3480; J3490; J7030; P9016; Q9967; A4216; A4222; A4223; A4600; A4649; A4930; A6223; C1713; C1725; C1753; C1874; Q9965